=== PATIENT | female | born 1990 | race Caucasian/White ===

== ENCOUNTER 2018-07-06 14:59 | Emergency (ER) | payer MEDICAID ==
[2018-07-06 15:05] VITALS: BP 157/70
[2018-07-06] MEDS ORDERED: ALBUTEROL SULFATE HFA (90 MCG/PUFF) 8 GM MDI (1 MDI/ER DISP) IH PRN (15:31)
--- NOTE | 2018-07-06 15:34 | ER Document Report ---
ED Medical Screen (RME) - General Chief Complaint: High Blood Sugar Stated Complaint: BLOOD SUGAR ISSUES Time Seen by Provider: 07/06/18 15:19 Mode of Arrival: Ambulatory Information source: Patient Notes: This is a 28-year-old female with a history of cigarette smoking and gestational diabetes who was recently seen for exacerbation of her reactive airway disease. She was treated at the urgent care with prednisone, erythromycin and a nasal spray. She states that her sugars have been elevated ever since. Fingerstick was 511. She does state that she is been feeling jittery from the steroids as well. She denies any nausea, vomiting, fever or abdominal pain. Her wheezing has improved. TRAVEL OUTSIDE OF THE [place] IN LAST 30 DAYS: No - HPI Onset: Last week Onset/Duration: Gradual Quality of pain: No pain Severity: None Pain Level: Denies Associated Symptoms: denies: Chest pain, Shortness of breath Exacerbated by: Denies Relieved by: Denies Similar symptoms previously: Yes Recently seen / treated by doctor: Yes - Related Data Smoking: Cigarettes Frequency of alcohol use: None Drug Abuse: None Allergies/Adverse Reactions: levofloxacin [From Levaquin] Allergy (Verified 07/06/18 14:59) pineapple [Pineapple] Allergy (Verified 07/06/18 14:59) Past Medical History - General Information source: Patient - Social History Cigarette use (# per day): Yes - 1 pack/day Chew tobacco use (# tins/day): No Frequency of alcohol use: Occasional Drug Abuse: Marijuana Lives with: Family Family history: None Pulmonary Medical History: Reports: Hx Asthma Endocrine Medical History: Reports: Hx Diabetes Mellitus Type 2 Renal/ Medical History: Denies: Hx Peritoneal Dialysis Psychiatric Medical History: Denies: Hx Depression Past Surgical History: Reports: Hx Section, Hx Oral Surgery Review of Systems - Review of Systems Constitutional: denies: Chills, Fever EENT: No symptoms reported Cardiovascular: No symptoms reported Respiratory: See HPI, Cough, Wheezing Gastrointestinal: denies: Abdominal pain, Nausea, Vomiting Genitourinary: No symptoms reported Female Genitourinary: No symptoms reported Musculoskeletal: No symptoms reported Skin: No symptoms reported Hematologic/Lymphatic: No symptoms reported Neurological/Psychological: No symptoms reported Physical Exam - Vital signs Vitals: Temp Pulse Resp BP Pulse Ox 97.4 F 70 17 157/70 H 95 07/06/18 15:04 07/06/18 15:04 07/06/18 15:07/06/18 15:04 07/06/18 15:04 Notes: Physical exam: GENERAL: 28-year-old female, alert and oriented x3, no acute distress. Her vital signs are stable. She does have a hoarse voice. HEAD: Atraumatic, normocephalic. EYES: Pupils equal round and reactive to light, extraocular movements intact, sclera anicteric, conjunctiva are normal. ENT: Oropharynx clear without exudates. Moist mucous membranes. NECK: Normal range of motion, supple without obvious mass or JVD. LUNGS: Breath sounds clear to auscultation bilaterally and equal. No wheezes rales or rhonchi. HEART: Regular rate and rhythm without murmurs, rubs or gallops. EXTREMITIES: Normal range of motion, no pitting or edema. No clubbing or cyanosis. NEUROLOGICAL: Cranial nerves II through XII grossly intact. Normal speech, moving all extremities. PSYCH: Normal mood, normal affect. SKIN: Warm, Dry, normal turgor, no rashes or lesions noted. Course - Re-evaluation Re-evalutation: 07/06/18 15:48 Note: I have had a long discussion with the patient. She should be off the steroids and she is okay coming off of them. I did discuss treating her with IV fluids and insulin however she requested that we hold off given that was stopping the prednisone and she would like to recheck it tomorrow. Patient states she wants to avoid large swings in the sugar. Given that she looks great , I am okay with this plan. She appears very reasonable and she understands that she can come back at any time if she does not feel well. I have given her an inhaler because she does still have a residual cough although the wheezing is pretty much resolved. She is already on an antibiotic (erythromycin) and she is going to continue that. And she plans on following up tomorrow morning with her provider for repeat blood sugar check. - Vital Signs Vital signs: Temp Pulse Resp BP Pulse Ox 97.4 F 70 17 157/70 H 95 07/06/18 15:04 07/06/18 15:04 07/06/18 15:04 07/06/18 15:04 07/06/18 15:04 Doctor's Discharge - Discharge Clinical Impression: Steroid-induced hyperglycemia Condition: Stable Disposition: HOME, SELF-CARE Additional Instructions: As we discussed, want you to stop the prednisone. Continue the erythromycin. Take albuterol: 2 puffs every 6 hours for wheezing or cough as needed. Continue with the nasal spray. Rest, drink plenty of fluids (avoid soda, sugar). As we discussed, want your sugar rechecked tomorrow morning in clinic. If you feel like you are getting worse or you are having vomiting or abdominal pain: Return to the emergency room for evaluation. Otherwise follow-up with your doctor in the office tomorrow. Forms: Parent Work Note Referrals: DOMENICO DUBON MD [Primary Care Provider] - Follow up as needed
== END 2018-07-06 15:42 | disposition home or self-care (01) ==
LOC: ER 14:59
DX: E11.65 Type 2 diabetes mellitus with hyperglycemia (principal); T38.0X5A Adverse effect of glucocorticoids and synthetic analogues, initial encounter; J45.909 Unspecified asthma, uncomplicated; R05 Cough; R49.0 Dysphonia; F17.210 Nicotine dependence, cigarettes, uncomplicated; F12.10 Cannabis abuse, uncomplicated; Z88.1 Allergy status to other antibiotic agents; Z91.018 Allergy to other foods
CPT/HCPCS: 99284; 82962; J3490

== ENCOUNTER 2019-02-13 07:33 | Observation (INO) | payer MEDICAID ==
[2019-02-13 08:38] LABS: ABSOLUTE EOSINOPHILS # (AUTO) 0.3 10^3/uL (0.0-0.6); ABSOLUTE LYMPHOCYTES (AUTO) 2.6 10^3/uL (0.5-4.7); ABSOLUTE MONOCYTES (AUTO) 0.7 10^3/uL (0.1-1.4); ABSOLUTE NEUT (AUTO) 4.8 10^3/uL (1.7-8.2); BASOPHILS % (AUTO) 0.4 % (0-2); EOSINOPHILS % (AUTO) 3.1 % (0-6); HEMOGLOBIN 13.4 g/dL (12.0-15.5); LYMPHOCYTES % (AUTO) 31.3 % (13-45); MEAN CORPUSCULAR HGB CONC 34.3 g/dL (32.0-36.0); MEAN CORPUSCULAR VOLUME 79 fl (80-97); PLATELET COUNT 269 10^3/uL (150-450); RED BLOOD COUNT 4.97 10^6/uL (3.72-5.28); RED CELL DISTRIBUTION WIDTH 13.1 % (11.5-14.0); SEGMENTED NEUTROPHILS % (AUTO) 57.2 % (42-78); TOTAL CELLS COUNTED % (AUTO) 100 %; WHITE BLOOD COUNT 8.4 10^3/uL (4.0-10.5)
[2019-02-13] MEDS ORDERED: MAG HYDROX/AL HYDROX/SIMETH SUSP 30 ML UDCUP PO ONE (08:45)
[2019-02-13] MEDS ORDERED: METOCLOPRAMIDE HCL ORAL SOLN 10 MG/10 ML UDCUP PO ONE (08:45)
[2019-02-13] MEDS ORDERED: LIDOCAINE 2% VISCOUS SOLN 20 ML UDCUP PO ONE (08:45)
[2019-02-13 08:53] LABS: APPEARANCE,URINE SLIGHTLY-CLOUDY; BILIRUBIN,URINE NEGATIVE (NEGATIVE); CALCIUM OXALATE CRYSTALS,URINE FEW /HPF; COLOR,URINE AMBER; GLUCOSE, URINE NEGATIVE (NEGATIVE); KETONES,URINE TRACE mg/dL (NEGATIVE); LEUKOCYTE ESTERASE,URINE NEGATIVE (NEGATIVE); NITRITE,URINE NEGATIVE (NEGATIVE); PROTEIN,URINE 30 mg/dL (NEGATIVE); URINE SPECIFIC GRAVITY 1.033; UROBILINOGEN,URINE NEGATIVE mg/dL (<2.0)
[2019-02-13 09:00] LABS: ALANINE AMINOTRANSFERASE 175 U/L (9-52); ALKALINE PHOSPHATASE 73 U/L (38-126); ANION GAP 10 (5-19); ASPARTATE AMINO TRANSFERASE 75 U/L (14-36); BILIRUBIN,DIRECT 0.3 mg/dL (0.0-0.4); BILIRUBIN,TOTAL 0.3 mg/dL (0.2-1.3); BLOOD UREA NITROGEN 17 mg/dL (7-20); CALCIUM 9.2 mg/dL (8.4-10.2); CARBON DIOXIDE 24 mmol/L (22-30); CHLORIDE 107 mmol/L (98-107); GLUCOSE 213 mg/dL (75-110); LIPASE 516.2 U/L (23-300); POTASSIUM 4.5 mmol/L (3.6-5.0); SODIUM 141.3 mmol/L (137-145); TOTAL PROTEIN 7.6 g/dL (6.3-8.2)
--- NOTE | 2019-02-13 09:19 | ER Document Report ---
ED General - General Chief Complaint: Abdominal Pain Stated Complaint: ABDOMINAL PAIN Time Seen by Provider: 02/13/19 08:45 Primary Care Provider: MARCELA NICOLE MD [COMMUNITY BASED STAFF] - Follow up as needed TRAVEL OUTSIDE OF THE [place] IN LAST 30 DAYS: No - HPI Notes: Patient is a 28-year-old female that presents to the emergency department for chief complaint of epigastric abdominal pain. Patient describes the pain as sharp and nonradiating. It woke her from sleep at 3 AM and has been constant since onset. She denies relieving factors and has tried pwmy-apd-ahvwuoc medications. She denies aggravating factors. She does report associated nausea with 2 episodes of emesis. She denies any diarrhea fevers chills or sick contacts. She does have a history of diabetes and denies ever having gallstones or pancreatitis in the past. Past Medical History: Diabetes, alopecia Past Surgical History: , wisdom teeth removal Social History: Occasional heavy alcohol consumption, denies tobacco or drug use Family History: Reviewed and noncontributory for presenting illness Allergies: Reviewed, see documented allergy list. REVIEW OF SYSTEMS: CONSTITUTIONAL : No fever No chills No diaphoresis No recent illness EENT: No vision changes No congestion No sore throat CARDIOVASCULAR: No chest pain No palpitations RESPIRATORY: No shortness of breath No cough No difficulty breathing GASTROINTESTINAL: abdominal pain nausea vomiting No diarrhea GENITOURINARY: No dysuria No hematuria No difficulty urinating MUSCULOSKELETAL: No back pain No leg pain No arm pain SKIN: No rashes No lesions LYMPHATIC: No swollen, enlarged glands. NEUROLOGICAL: No lightheadedness No headache No weakness No paresthesias PSYCHIATRIC: No anxiety No depression PHYSICAL EXAMINATION: Vital signs reviewed, nursing noted reviewed. GENERAL: Appears uncomfortable, well-nourished and in no acute distress. HEAD: Atraumatic, normocephalic. EYES: Eyes appear normal, extraocular movements intact, sclera anicteric, conjunctiva are normal. ENT: nares patent, oropharynx clear without exudates. Moist mucous membranes. NECK: Normal range of motion, supple without lymphadenopathy LUNGS: Breath sounds clear to auscultation bilaterally and equal. No wheezes rales or rhonchi. HEART: Regular rate and rhythm without murmurs ABDOMEN: Soft, tenderness epigastric and right upper quadrant, negative Oneill sign, normoactive bowel sounds. No rebound, guarding, or rigidity. No masses appreciated. EXTREMITIES: Nontender, good range of motion, no pitting or edema. NEUROLOGICAL: No focal neurological deficits. Moves all extremities spontaneously Motor and sensory grossly intact on exam. PSYCH: Normal mood, normal affect. SKIN: Warm, Dry, normal turgor, no rashes or lesions noted on exposed skin - Related Data Allergies/Adverse Reactions: levofloxacin [From Levaquin] Allergy (Verified 02/13/19 07:35) pineapple [Pineapple] Allergy (Verified 02/13/19 07:35) Past Medical History - Social History Smoking Status: Former Smoker Frequency of alcohol use: Occasional Family History: Reviewed & Not Pertinent Patient has suicidal ideation: No Patient has homicidal ideation: No Pulmonary Medical History: Reports: Hx Asthma Endocrine Medical History: Reports: Hx Diabetes Mellitus Type 2 Renal/ Medical History: Denies: Hx Peritoneal Dialysis Psychiatric Medical History: Denies: Hx Depression Past Surgical History: Reports: Hx Section, Hx Oral Surgery Physical Exam - Vital signs Vitals: Temp Pulse Resp BP Pulse Ox 97.8 F 62 16 152/80 H 99 02/13/19 07:40 02/13/19 07:40 02/13/19 07:40 02/13/19 07:40 02/13/19 07:40 Course - Re-evaluation Re-evalutation: 02/13/19 09:19 Vitals reviewed. Nursing notes reviewed. Patient was ordered GI cocktail for symptom medic management and did have some improvement of her symptoms. Lab work shows elevated glucose consistent with her diabetes. She also has a slight elevation of her lipase and LFTs. Ultrasound of the right upper quadrant will be obtained to evaluate for cholelithiasis and cholecystitis. 02/13/19 10:37 Patient's ultrasound does show cholelithiasis without acute cholecystitis. Her cholelithiasis is likely the cause of her elevated LFTs and lipase. Patient is still very uncomfortable with significant abdominal tenderness. She has been ordered morphine and IV fluids. Patient's care was discussed with Dr. King who will evaluate her in the emergency room. Laboratory 02/13/19 02/13/19 02/13/19 08:25 08:25 08:25 WBC 8.4 RBC 4.97 Hgb 13.4 Hct 39.0 MCV 79 L MCH 27.0 MCHC 34.3 RDW 13.1 Plt Count 269 Seg Neutrophils % 57.2 Lymphocytes % 31.3 Monocytes % 8.0 Eosinophils % 3.1 Basophils % 0.4 Absolute Neutrophils 4.8 Absolute Lymphocytes 2.6 Absolute Monocytes 0.7 Absolute Eosinophils 0.3 Absolute Basophils 0.0 Sodium 141.3 Potassium 4.5 Chloride 107 Carbon Dioxide 24 Anion Gap 10 BUN 17 Creatinine 0.70 Est GFR ( Amer) > 60 Est GFR (Non-Af Amer) > 60 Glucose 213 H Calcium 9.2 Total Bilirubin 0.3 Direct Bilirubin 0.3 Neonat Total Bilirubin Not Reportable Neonat Direct Bilirubin Not Reportable Neonat Indirect Bili Not Reportable AST 75 H ALT 175 H Alkaline Phosphatase 73 Total Protein 7.6 Albumin 4.0 Lipase 516.2 H Urine Color MICHELLE Urine Appearance SLIGHTLY-CLOUDY Urine pH 5.0 Ur Specific [place] 1.033 Urine Protein 30 H Urine Glucose (UA) NEGATIVE Urine Ketones TRACE H Urine Blood NEGATIVE Urine Nitrite NEGATIVE Urine Bilirubin NEGATIVE Urine Urobilinogen NEGATIVE Ur Leukocyte Esterase NEGATIVE Urine WBC (Auto) 4 Urine RBC (Auto) 3 Squamous Epi Cells Auto 4 Calcium Oxalate Cr Auto FEW Urine Mucus (Auto) MANY Urine Ascorbic Acid NEGATIVE Urine HCG, Qual NEGATIVE Abdomen Ultrasound 02/13/19 09:08 IMPRESSION: 1. Cholelithiasis and gallbladder sludge with no other sonographic evidence for acute cholecystitis. 2. Fatty infiltration of the liver. 02/13/19 12:16 Patient was evaluated at bedside by Dr. King who feels she is a good candidate for management at this facility. He states he will monitor her this evening and potentially perform cholecystectomy tomorrow depending on symptomatic changes and blood work. He request patient be admitted to the medical service. I discussed her care with Dr. Belle and Rizwana Boland who accepted admission. Patient in agreement with plan of care. - Vital Signs Vital signs: Temp Pulse Resp BP Pulse Ox 97.8 F 62 16 152/80 H 99 02/13/19 07:40 02/13/19 07:40 02/13/19 07:40 02/13/19 07:40 02/13/19 07:40 - Laboratory Result Diagrams: 02/13/19 08:25 02/13/19 08:25 Laboratory results interpreted by me: 02/13/19 02/13/19 02/13/19 08:25 08:25 08:25 MCV 79 L Glucose 213 H AST 75 H ALT 175 H Lipase 516.2 H Urine Protein 30 H Urine Ketones TRACE H Discharge - Discharge Clinical Impression: Gallstone pancreatitis Cholelithiasis Qualifiers: Cholelithiasis location: gallbladder Cholecystitis presence: without cholecystitis Biliary obstruction: without biliary obstruction Qualified Code(s): K80.20 - Calculus of gallbladder without cholecystitis without obstruction Condition: Stable Disposition: ADMITTED INPATIENT Admitting Provider: Anne (Hospitalist) Unit Admitted: Medical Floor Referrals: MARCELA NICOLE MD [COMMUNITY BASED STAFF] - Follow up as needed
--- NOTE | 2019-02-13 10:03 | RADIOLOGY REPORT (SQ) ---
EXAM DESCRIPTION: U/S ABDOMEN LIMITED W/O DOP COMPLETED DATE/TIME: 02/13/2019 9:37 am REASON FOR STUDY: RUQ pain COMPARISON: None. TECHNIQUE: Grayscale images acquired of the right upper quadrant and recorded on PACS. Additional se lected color Doppler and spectral images recorded. LIMITATIONS: Acoustical interference from fat or from air in the bowel. FINDINGS: PANCREAS: Obscured by overlying bowel gas, not well evaluated on this exam. LIVER: Measures 18.2 cm. There is increased echogenicity of the liver parenchyma. LIVER VASCULATURE: Normal directional flow of the main portal vein and hepatic veins. GALLBLADDER: There is cholelithiasis. There is gallbladder sludge. Normal wall thickness. No pericho lecystic fluid. ULTRASOUND-DETECTED PÉREZ'S SIGN: Negative. INTRAHEPATIC DUCTS AND COMMON DUCT: CBD and intrahepatic ducts normal caliber. INFERIOR VENA CAVA: Not well visualized. AORTA: No aneurysm at the visualized segments, the distal abdominal aorta was obscured by overlying b owel gas. RIGHT KIDNEY: Measures 11.6 cm in length. Normal echogenicity. No hydronephrosis. No calcifications. PERITONEAL CAVITY AND RIGHT PLEURAL SPACE: No ascites or effusions. IMPRESSION: 1. Cholelithiasis and gallbladder sludge with no other sonographic evidence for acute c holecystitis. 2. Fatty infiltration of the liver. TECHNICAL DOCUMENTATION: JOB ID: [id number]- All Rights Reserved Reading location - IP/workstation name: [email or web address]
[2019-02-13] MEDS ORDERED: MORPHINE SULFATE 10 MG/ML INJ IV ONE (10:36)
[2019-02-13] MEDS ORDERED: NORMAL SALINE 1000 ML 1,000 ML IV ONE (10:36)
--- NOTE | 2019-02-13 12:21 | PDOC CONSULTATION ---
Consultation Consult Date: 02/13/19 Provider Consulted: JEFFERY WALTERS Consult reason:: Elevated LFTs and lipase with cholelithiasis History of Present Illness Admission Date/PCP: BEBO WAKEFIELD MD History of Present Illness: ALEJANDRA FLORES is a 28 year old female with insulin dependent DM suddenly c/o epigastric pains after a fatty dinner. Denies nausea but forced herself to vomit to feel better. Pains radiate to the back. Had US which showed cholelithiasis and sludge. LFts slightly elevated as well as lipase. Claimed she was told to have elevated LFTs in 2011 but she was almost 300 lbs then and this was attributed to fatty liver. Denies diarrhea,constipation, fever,chills nor dysuria. Past Medical History Pulmonary Medical History: Reports: Asthma Endocrine Medical History: Reports: Diabetes Mellitus Type 2 Skin History Note: Has alopecia Psychiatric Medical History: Denies: Depression Past Surgical History Past Surgical History: Reports: Section Social History Smoking Status: Former Smoker Frequency of Alcohol Use: None Hx Recreational Drug Use: No Family History Family History: Reviewed & Not Pertinent Parental Family History Reviewed: Yes Children Family History Reviewed: No Sibling(s) Family History Reviewed.: No Medication/Allergy Home Medications: Vitamin [-U Multiple Vitamin Capsule] 1 cap PO DAILY #0 capsule 05/04/15 Ibuprofen [Motrin 800 mg Tablet] 800 mg PO Q6 #30 tablet 05/26/15 Oxycodone HCl/Acetaminophen [Percocet 5-325 mg Tablet] 2 tab PO Q4HP PRN #30 tablet 05/26/15 Albuterol Sulfate [Ventolin Hfa] 2 puff IH Q4HP PRN #17 gm 01/11/16 Cetirizine HCl [Zyrtec 10 mg Tablet] 1 tab PO DAILY #15 tablet 01/11/16 Hydrocodone/Acetaminophen [[place] 5-325 Tablet] 1 each PO Q4 PRN #15 tablet 01/11/16 Prednisone 20 mg PO DAILY #12 tablet 01/11/16 Allergies/Adverse Reactions: levofloxacin [From Levaquin] Allergy (Verified 02/13/19 07:35) pineapple [Pineapple] Allergy (Verified 02/13/19 07:35) Review of Systems Constitutional: PRESENT: as per HPI Eyes: PRESENT: other - no visual/hearing changes Nose, Mouth, and Throat: PRESENT: other - no headache Cardiovascular: PRESENT: other - no chest pains/cough Gastrointestinal: PRESENT: abdominal pain Physical Exam Vital Signs: Temp Pulse Resp BP Pulse Ox 97.8 F 62 16 152/80 H 99 02/13/19 07:40 02/13/19 07:40 02/13/19 07:40 02/13/19 07:40 02/13/19 07:40 Intake & Output 02/12/19 02/13/19 02/14/19 06:59 06:59 06:59 Weight 92.9 kg General appearance: PRESENT: mild distress, obese Head exam: PRESENT: atraumatic Eye exam: PRESENT: conjunctiva pink Mouth exam: PRESENT: moist Neck exam: PRESENT: full ROM Respiratory exam: PRESENT: clear to auscultation hiral Cardiovascular exam: PRESENT: RRR Pulses: PRESENT: normal radial pulses Vascular exam: PRESENT: normal capillary refill GI/Abdominal exam: PRESENT: soft, tenderness - mild epigastric area. Just haed narcotic for pain. Rectal exam: PRESENT: deferred Extremities exam: PRESENT: full ROM Musculoskeletal exam: PRESENT: ambulatory Neurological exam: PRESENT: alert, oriented to person, oriented to place, oriented to time, oriented to situation Psychiatric exam: PRESENT: appropriate affect Skin exam: PRESENT: normal color, warm Results Laboratory Results: 02/13/19 08:25 02/13/19 08:25 02/13/19 02/13/19 02/13/19 08:25 08:25 08:25 WBC 8.4 RBC 4.97 Hgb 13.4 Hct 39.0 MCV 79 L MCH 27.0 MCHC 34.3 RDW 13.1 Plt Count 269 Seg Neutrophils % 57.2 Lymphocytes % 31.3 Monocytes % 8.0 Eosinophils % 3.1 Basophils % 0.4 Absolute Neutrophils 4.8 Absolute Lymphocytes 2.6 Absolute Monocytes 0.7 Absolute Eosinophils 0.3 Absolute Basophils 0.0 Sodium 141.3 Potassium 4.5 Chloride 107 Carbon Dioxide 24 Anion Gap 10 BUN 17 Creatinine 0.70 Est GFR ( Amer) > 60 Est GFR (Non-Af Amer) > 60 Glucose 213 H Calcium 9.2 Total Bilirubin 0.3 AST 75 H ALT 175 H Alkaline Phosphatase 73 Total Protein 7.6 Albumin 4.0 Lipase 516.2 H Urine Color MICHELLE Urine Appearance SLIGHTLY-CLOUDY Urine pH 5.0 Ur Specific [place] 1.033 Urine Protein 30 H Urine Glucose (UA) NEGATIVE Urine Ketones TRACE H Urine Blood NEGATIVE Urine Nitrite NEGATIVE Ur Leukocyte Esterase NEGATIVE Urine WBC (Auto) 4 Urine RBC (Auto) 3 Impressions: Abdomen Ultrasound 02/13/19 09:08 IMPRESSION: 1. Cholelithiasis and gallbladder sludge with no other sonographic evidence for acute cholecystitis. 2. Fatty infiltration of the liver. Assessment & Plan - Diagnosis (4) Cholelithiasis Qualifiers: Cholelithiasis location: gallbladder Cholecystitis presence: without cholecystitis Biliary obstruction: without biliary obstruction Qualified Code(s): K80.20 - Calculus of gallbladder without cholecystitis without obstruction Is this a current diagnosis for this admission?: Yes (5) Gallstone pancreatitis Is this a current diagnosis for this admission?: Yes - Time Time Spent: 30 to 50 Minutes - Inpatient Certification Medical Necessity: Need For IV Fluids, Need for Pain Control, Need for IV Antibiotics, Need for Surgery - Plan Summary Plan Summary: Will repeat Labs in am Possible lap divya with IOC if LFTs and lipase trending down Keep NPO after midnight
[2019-02-13] MEDS ORDERED: ALBUTEROL SULFATE 0.083% NEB 2.5 MG/3 ML AMPUL NEB PRN (13:41)
[2019-02-13] MEDS ORDERED: GLUCAGON,HUMAN RECOMB 1 MG INJ IM PRN (13:42)
[2019-02-13] MEDS ORDERED: DEXTROSE 50%-WATER 25 GM/50 ML DISP.SYRIN IV PRN ×2 (13:42)
[2019-02-13] MEDS ORDERED: OXYCODONE-ACETAMINOPHEN 5-325 MG TABLET PO PRN (13:42)
[2019-02-13] MEDS ORDERED: ACETAMINOPHEN 325 MG TABLET PO PRN (13:42)
[2019-02-13] MEDS ORDERED: DEXTROSE 40% GEL 15 GM TUBE PO PRN ×2 (13:42)
[2019-02-13] MEDS ORDERED: NORMAL SALINE 1000 ML 1,000 ML IV PRN (13:45)
[2019-02-13] MEDS: HEPARIN SOD (PORCINE) 5,000 UNIT/ML 1 ML SYRINGE SUBCUT SCH ×2 (14:36→21:30)
[2019-02-13] MEDS: MORPHINE SULFATE 10 MG/ML INJ IV PRN ×2 (17:21→20:43)
--- NOTE | 2019-02-13 18:42 | PDOC H&P ---
History of Present Illness Admission Date/PCP: 02/13/19 14:18 BEBO WAKEFIELD MD Patient complains of: abd pain History of Present Illness: ALEJANDRA FLORES is a 28 year old female with a past medical history of alopecia, diabetes mellitus, hypothyroidism, and obesity who presented to the emergency department today with a complaint of sudden onset severe epigastric pain with nausea. Evaluation in emergency department revealed low-grade temperature of 99.2 but otherwise acceptable vital signs, normal CBC, mildly elevated LFTs, and a lipase of 516. Abdominal ultrasound demonstrated cholelithiasis and gallbladder sludge without other evidence for acute cholecystitis. Fatty infiltration of the liver. Surgery was consulted; plan for possible lap divya tomorrow if lipase and LFTs are trend down. She is referred to the hospitalist service for admission and management. Past Medical History Cardiac Medical History: Reports: None Pulmonary Medical History: Reports: Asthma EENT Medical History: Reports: None Neurological Medical History: Reports: None Endocrine Medical History: Reports: Diabetes Mellitus Type 2, Hypothyroidism, Obesity, Other - Alopecia Malignancy Medical History: Reports: None GI Medical History: Reports: None Musculoskeltal Medical History: Reports: None Skin Medical History: Reports: None Psychiatric Medical History: Reports: Depression Traumatic Medical History: Reports: None Hematology: Reports: None Infectious Medical History: Reports: None Past Surgical History Past Surgical History: Reports: Section Social History Information Source: Patient Smoking Status: Current Some Day Smoker Number of Years Smokin Last Time Smoked: 02/10/19 Frequency of Alcohol Use: Occasional Hx Recreational Drug Use: Yes Drugs: Marijuana Hx Prescription Drug Abuse: No - Advance Directive Resuscitation Status: Full Code Family History Family History: Reviewed & Not Pertinent Parental Family History Reviewed: Yes Children Family History Reviewed: Yes Sibling(s) Family History Reviewed.: Yes Medication/Allergy Home Medications: Albuterol Sulfate [Proair Hfa Inhalation Aerosol 8.5 gm Mdi] 1 puff IH Q4 PRN 02/13/19 Albuterol Sulfate [Ventolin 0.083% Neb 2.5 mg/3 ml Ampul] 1 vial NEB TIDP PRN 02/13/19 Buspirone HCl [Buspar 5 mg Tablet] 1 tab PO BID 02/13/19 Ethinyl Estradiol/Drospirenone [Dania 28 Tablet] 1 each PO DAILY 02/13/19 Fluticasone Propionate [Flonase Nasal [place] 50 Mcg/[place] 16 gm] 2 sprays NASL DAILY 02/13/19 Insulin Glargine,Hum.rec.anlog [Lantus Insulin 100 Unit/1 ml 10 ml] 0 unit SUBCUT .SLIDING SCALE 02/13/19 Liraglutide [Victoza 2-Celestine] 1.8 mg SQ DAILY 02/13/19 Varenicline Tartrate [Chantix 1 Mg Tablet] 1 mg PO BID 02/13/19 Allergies/Adverse Reactions: levofloxacin [From Levaquin] Allergy (Verified 02/13/19 07:35) pineapple [Pineapple] Allergy (Verified 02/13/19 07:35) Review of Systems Constitutional: ABSENT: chills, fever(s), headache(s), weight gain, weight loss Eyes: ABSENT: visual disturbances Ears: ABSENT: hearing changes Cardiovascular: ABSENT: chest pain, dyspnea on exertion, edema, orthropnea, palpitations Respiratory: ABSENT: cough, hemoptysis Gastrointestinal: PRESENT: abdominal pain, bloating, nausea. ABSENT: constipation, diarrhea, hematemesis, hematochezia, vomiting Genitourinary: ABSENT: dysuria, hematuria Musculoskeletal: ABSENT: joint swelling Integumentary: ABSENT: rash, wounds Neurological: ABSENT: abnormal gait, abnormal speech, confusion, dizziness, focal weakness, syncope Psychiatric: ABSENT: anxiety, depression, homidical ideation, suicidal ideation Endocrine: ABSENT: cold intolerance, heat intolerance, polydipsia, polyuria Hematologic/Lymphatic: ABSENT: easy bleeding, easy bruising Physical Exam Vital Signs: Temp Pulse Resp BP Pulse Ox 99.2 F 61 15 131/93 H 98 02/13/19 16:54 02/13/19 16:54 02/13/19 16:54 02/13/19 16:54 02/13/19 16:54 Intake & Output 02/12/19 02/13/19 02/14/19 06:59 06:59 06:59 Intake Total 1500 Balance 1500 Weight 92.9 kg General appearance: PRESENT: no acute distress, cooperative - Pleasant, obese, well-developed, well-nourished Head exam: PRESENT: atraumatic, normocephalic Eye exam: PRESENT: conjunctiva pink, EOMI, PERRLA. ABSENT: scleral icterus Ear exam: PRESENT: normal external ear exam Mouth exam: PRESENT: moist, tongue midline Neck exam: ABSENT: carotid bruit, JVD, lymphadenopathy, thyromegaly Respiratory exam: PRESENT: clear to auscultation hiral, symmetrical, unlabored. ABSENT: rales, rhonchi, wheezes Cardiovascular exam: PRESENT: RRR, +S1, +S2. ABSENT: diastolic murmur, rubs, systolic murmur Pulses: PRESENT: normal dorsalis pedis pul Vascular exam: PRESENT: normal capillary refill GI/Abdominal exam: PRESENT: normal bowel sounds, soft, tenderness. ABSENT: distended, guarding, mass, organolmegaly, rebound Rectal exam: PRESENT: deferred Extremities exam: PRESENT: full ROM. ABSENT: calf tenderness, clubbing, pedal edema Neurological exam: PRESENT: alert, awake, oriented to person, oriented to place, oriented to time, oriented to situation, CN II-XII grossly intact. ABSENT: motor sensory deficit Psychiatric exam: PRESENT: appropriate affect, normal mood. ABSENT: homicidal ideation, suicidal ideation Skin exam: PRESENT: dry, intact, warm. ABSENT: cyanosis, rash Results Laboratory Results: 02/13/19 08:25 02/13/19 08:25 02/13/19 02/13/19 02/13/19 08:25 08:25 08:25 WBC 8.4 RBC 4.97 Hgb 13.4 Hct 39.0 MCV 79 L MCH 27.0 MCHC 34.3 RDW 13.1 Plt Count 269 Seg Neutrophils % 57.2 Lymphocytes % 31.3 Monocytes % 8.0 Eosinophils % 3.1 Basophils % 0.4 Absolute Neutrophils 4.8 Absolute Lymphocytes 2.6 Absolute Monocytes 0.7 Absolute Eosinophils 0.3 Absolute Basophils 0.0 Sodium 141.3 Potassium 4.5 Chloride 107 Carbon Dioxide 24 Anion Gap 10 BUN 17 Creatinine 0.70 Est GFR ( Amer) > 60 Est GFR (Non-Af Amer) > 60 Glucose 213 H Calcium 9.2 Total Bilirubin 0.3 AST 75 H ALT 175 H Alkaline Phosphatase 73 Total Protein 7.6 Albumin 4.0 Lipase 516.2 H Urine Color MICHELLE Urine Appearance SLIGHTLY-CLOUDY Urine pH 5.0 Ur Specific [place] 1.033 Urine Protein 30 H Urine Glucose (UA) NEGATIVE Urine Ketones TRACE H Urine Blood NEGATIVE Urine Nitrite NEGATIVE Ur Leukocyte Esterase NEGATIVE Urine WBC (Auto) 4 Urine RBC (Auto) 3 Impressions: Abdomen Ultrasound 02/13/19 09:08 IMPRESSION: 1. Cholelithiasis and gallbladder sludge with no other sonographic evidence for acute cholecystitis. 2. Fatty infiltration of the liver. Assessment and Plan - Diagnosis (1) Gallstone pancreatitis Is this a current diagnosis for this admission?: Yes Plan: Patient is found to have an elevated lipase of 516 and cholelithiasis by ultrasound. Slightly elevated LFTs; AST 75, ALT 175. Patient is advised the recommended n.p.o. status; requesting to be allowed to drink. Placed on clear liquid diet. N.p.o. after midnight. IV fluids. Analgesics and antiemetics as needed. Repeat CBC, CMP, and lipase with a.m. lab work. Surgery is consulted; if lab work is improved, plan for cholecystectomy. (2) Insulin dependent DM Is this a current diagnosis for this admission?: Yes Plan: Patient is currently placed on a clear liquid diet. Will provide one half home dose Lantus. Accu-Cheks before meals and at bedtime with Humalog for sliding scale coverage. Hypoglycemia protocol. (3) Hypothyroid Is this a current diagnosis for this admission?: Yes Plan: Patient reports history of hypothyroidism; states that she has been on medications for several years. Will check thyroid panel with a.m. lab work. (4) Nausea Is this a current diagnosis for this admission?: Yes Plan: Secondary to #1. Clear liquid diet, IV fluids, antiemetics as needed. (5) Obesity Qualifiers: Body mass index: BMI 37.0-37.9 Is this a current diagnosis for this admission?: Yes Plan: Lifestyle modifications and dietary discretion is advised. - Time Time Spent with patient: 35 or more minutes Medications reviewed and adjusted accordingly: Yes Anticipated discharge: Home Within: within 48 hours
[2019-02-13] MEDS: INSULIN LISPRO 100 UNIT/ML 3 ML VIAL SUBCUT SCH ×2 (18:59→21:30)
[2019-02-13] MEDS: VARENICLINE TARTRATE 1 MG TABLET PO SCH (21:32)
[2019-02-13] MEDS: BUSPIRONE HCL 10 MG TABLET PO SCH (21:32)
[2019-02-13] MEDS ORDERED: INSULIN GLARGINE,HUM.REC.ANLOG 1,000 UNIT/10 ML VIAL SUBCUT SCH ×2 (22:00)
[2019-02-14] MEDS: MORPHINE SULFATE 10 MG/ML INJ IV PRN ×3 (00:15→12:11)
[2019-02-14] MEDS: HEPARIN SOD (PORCINE) 5,000 UNIT/ML 1 ML SYRINGE SUBCUT SCH ×2 (05:15→14:31)
[2019-02-14 06:33] LABS: ABSOLUTE EOSINOPHILS # (AUTO) 0.3 10^3/uL (0.0-0.6); ABSOLUTE LYMPHOCYTES (AUTO) 2.8 10^3/uL (0.5-4.7); ABSOLUTE MONOCYTES (AUTO) 0.7 10^3/uL (0.1-1.4); ABSOLUTE NEUT (AUTO) 4.1 10^3/uL (1.7-8.2); BASOPHILS % (AUTO) 0.3 % (0-2); EOSINOPHILS % (AUTO) 3.4 % (0-6); LYMPHOCYTES % (AUTO) 35.9 % (13-45); MEAN CORPUSCULAR HEMOGLOBIN 26.5 pg (27.0-33.4); MEAN CORPUSCULAR HGB CONC 33.3 g/dL (32.0-36.0); MEAN CORPUSCULAR VOLUME 80 fl (80-97); MONOCYTES % (AUTO) 8.6 % (3-13); PLATELET COUNT 225 10^3/uL (150-450); RED BLOOD COUNT 4.52 10^6/uL (3.72-5.28); RED CELL DISTRIBUTION WIDTH 13.4 % (11.5-14.0); SEGMENTED NEUTROPHILS % (AUTO) 51.8 % (42-78); TOTAL CELLS COUNTED % (AUTO) 100 %; WHITE BLOOD COUNT 7.9 10^3/uL (4.0-10.5)
[2019-02-14 07:04] LABS: ALANINE AMINOTRANSFERASE 156 U/L (9-52); ALBUMIN 3.3 g/dL (3.5-5.0); ALKALINE PHOSPHATASE 55 U/L (38-126); ANION GAP 7 (5-19); ASPARTATE AMINO TRANSFERASE 78 U/L (14-36); BILIRUBIN,DIRECT 0.3 mg/dL (0.0-0.4); BILIRUBIN,TOTAL 0.3 mg/dL (0.2-1.3); BLOOD UREA NITROGEN 10 mg/dL (7-20); CALCIUM 8.4 mg/dL (8.4-10.2); CARBON DIOXIDE 27 mmol/L (22-30); CHLORIDE 110 mmol/L (98-107); GLUCOSE 110 mg/dL (75-110); LIPASE 254.4 U/L (23-300); POTASSIUM 4.3 mmol/L (3.6-5.0); SODIUM 143.5 mmol/L (137-145); TOTAL PROTEIN 6.6 g/dL (6.3-8.2)
[2019-02-14] MEDS ORDERED: BUPIVACAINE HCL 0.25 % INJ/PF (2.5 MG/1 ML) 30 ML VIAL ONE (08:32)
[2019-02-14] MEDS ORDERED: PROPOFOL INJ 200 MG/20 ML VIAL IV ONE (08:34)
[2019-02-14] MEDS ORDERED: MORPHINE SULFATE 10 MG/ML INJ ONE (08:34)
[2019-02-14] MEDS ORDERED: MIDAZOLAM 2 MG/2 ML INJ ONE (08:34)
[2019-02-14] MEDS ORDERED: FENTANYL CITRATE INJ/PF 100 MCG/2 ML AMPUL ONE ×2 (08:34→10:59)
[2019-02-14] MEDS ORDERED: CEFAZOLIN INJ 1 GM VIAL ONE (09:21)
[2019-02-14] MEDS ORDERED: MEPERIDINE HCL/PF INJ 25 MG/1 ML DISP.SYRIN IV PRN (09:36)
[2019-02-14] MEDS ORDERED: DIPHENHYDRAMINE HCL 50 MG/ML VIAL IV PRN (09:36)
[2019-02-14] MEDS ORDERED: FENTANYL CITRATE INJ/PF 100 MCG/2 ML AMPUL IV PRN ×3 (09:36)
[2019-02-14] MEDS ORDERED: PROMETHAZINE HCL INJ 25 MG/1 ML VIAL IV PRN ×2 (09:36)
[2019-02-14] MEDS ORDERED: MORPHINE SULFATE 10 MG/ML INJ IV PRN (09:36)
[2019-02-14] MEDS ORDERED: FLUTICASONE NASAL SPRAY 50 MCG/SPRY 120 SPRAY/16 GM NASL SCH (10:00)
[2019-02-14] MEDS ORDERED: KETOROLAC TROMETHAMINE 10 MG TABLET PO PRN (10:44)
[2019-02-14] MEDS ORDERED: KETOROLAC TROMETHAMINE INJ/PF 30 MG/1 ML SDV IV PRN (10:44)
[2019-02-14] MEDS ORDERED: ONDANSETRON HCL INJ/PF 4 MG/2 ML SDV IV PRN (10:44)
--- NOTE | 2019-02-14 11:02 | Operative Report ---
Operative Report DATE OF SURGERY: 02/14/19 PREOPERATIVE DIAGNOSIS: 1. Acute cholecystitis with cholelithiasis. 2. [place] robi liver function studies POSTOPERATIVE DIAGNOSIS: Same with no evidence of common bile duct stone OPERATION: 1. Laparoscopic cholecystectomy. 2. Intraoperative cholangiography. 3. Interpretation of intraoperative cholangiography. SURGEON: DOMENICO CHOW ANESTHESIA: GA TISSUE REMOVED OR ALTERED: 1 gallbladder with stones COMPLICATIONS: None ESTIMATED BLOOD LOSS: 40 cc INTRAOPERATIVE FINDINGS: See below PROCEDURE: After obtaining informed consent, the patient was taken to the operating room. General Anesthesia was induced; the arms were extended, and the abdomen was exposed, and prepped and draped in a sterile fashion. Instrumentation was set up for laparoscopic cholecystectomy. Surgical plan and surgical timeout were conducted. A vertical incision was made above the umbilicus, and a verres needle was inserted uneventfully into the peritoneal cavity. Pneumoperitoneum was established. The verres needle was removed and a 5 mm trocar was inserted and a 5 mm flexible laparoscope was inserted. Visualization of the peritoneal cavity confirmed safe uneventful entry. Under direct visualization 3 additional 5 mm ports were established, one in the subxiphoid position and second in the subcostal position. There were extensive adhesions between the fundus of the gallbladder, gastroduodenal area and the transverse colon. The findings were consistent with acute cholecystitis. All of these were taken down under direct visualization using hook cautery dissection, suction and blunt dissection. We now began dissecting out the neck of the gallbladder. Because of the patient's size, large length of the gallbladder, edema, and having fatty tissue, it was difficult to get the infundibulum of the gallbladder away from the liver plate. Therefore we switched graspers, and took the gallbladder down from the fundus under the the gallbladder was very edematous. We proceeded in a methodical fashion with minimal blood loss. Eventually the gallbladder was suspended by branches of the cystic artery, and the bladder neck. Branches of the cystic artery were clipped and divided under direct visualization. We cleared the remaining attachments from around the gallbladder neck, and its junction with the cystic duct. Photographs were taken. The cystic duct was clipped once distally, opened with the laparoscopic scissors and clear bile was released. Through a separate stab wound with 11 blade, the percutaneous cholangiogram catheter and let were threaded through the anterior abdominal moved, and the cholangiogram catheter brought down into the field, and advanced 1/2 cm into the cystic duct. A clip was used to secure the catheter. We flushed the biliary system with saline, then injected approximately 7 cc of full-strength Isovue contrast. Real-time fluoroscopy revealed complete visualization of the intra-and extrahepatic biliary tree, egress of contrast into the duodenum, no evidence of filling defects within the common bile duct, and no evidence of leak. We interpreted this as a normal cholangiogram. We returned to the patient, remove the cholangiogram catheter, and secured the cystic duct stump with 2 clips and then the cystic duct was divided completely. The gallbladder was removed uneventfully from the abdominal cavity through the super umbilical port site incision. The specimen was examined, then passed off to pathology for permanent analysis. We returned to the peritoneal cavity check for bleeding, and evidence of bile leak, and there was none. We Confirmed satisfactory placement of clips on cys tic duct and cystic artery were secured . At this point we felt the operation was complete. Photographs were taken. The subcutaneous tissue was then anesthetized with quarter percent Marcaine Sponge and needle counts are correct. All ports removed under direct visualization pneumoperitoneum evacuated, the super local fascial defect was closed with 2 interrupted 0 Vicryl sutures, and 5 mm port wounds closed with 3-0 Vicryl suture, benzoin and Steri- Strips. The patient was extubated, and taken to the recovery room in stable condition.
[2019-02-14] MEDS ORDERED: PROMETHAZINE HCL INJ 25 MG/1 ML VIAL ONE (11:03)
[2019-02-14] MEDS ORDERED: DEXAMETHASONE SOD PHOSPHATE INJ 4 MG/1 ML VIAL ONE (11:25)
[2019-02-14] MEDS ORDERED: ONDANSETRON HCL INJ/PF 4 MG/2 ML SDV ONE (11:25)
[2019-02-14] MEDS ORDERED: SUCCINYLCHOLINE CHLORIDE INJ 200 MG/10 ML VIAL ONE (11:25)
[2019-02-14] MEDS ORDERED: ROCURONIUM BROMIDE INJ 50 MG/5 ML VIAL IV ONE (11:25)
--- NOTE | 2019-02-14 12:58 | RADIOLOGY REPORT (SQ) ---
EXAM DESCRIPTION: CHOLANGIOGRAM OPERATIVE COMPLETED DATE/TIME: 02/14/2019 12:19 pm REASON FOR STUDY: CHOLANGIOGRAM IN OR COMPARISON: Recent ultrasound. FLUOROSCOPY TIME: 0.1 minutes 5 images saved to PACS. TECHNIQUE: Intra-operative images acquired during surgical procedure to evaluate progress. NUMBER OF IMAGES: 5 LIMITATIONS: None. FINDINGS: Images show intraoperative cholangiogram. Status post cholecystectomy. No filling defect s in the biliary tree. Expected contrast extending into the duodenum. IMPRESSION: IMAGE(S) OBTAINED DURING PROCEDURE. COMMENT: Quality ID [id number]: Final reports for procedures using fluoroscopy that document radiation exp osure indices, or exposure time and number of fluorographic images (if radiation exposure indices are not available) Please consult full operative report of the attending physician for description of the procedure. TECHNICAL DOCUMENTATION: JOB ID: [id number] [employer]- All Rights Reserved Reading location - IP/workstation name: [email or web address]
[2019-02-14] MEDS: INSULIN LISPRO 100 UNIT/ML 3 ML VIAL SUBCUT SCH ×3 (13:09→17:21)
--- NOTE | 2019-02-14 14:24 | PROGRESS NOTE E ---
Progress Note NAME: ALEJANDRA FLORES : 1990 AGE: 28Y DATE: 02/14/2019 ROOM: 207 SUBJECTIVE: The patient feels better. No complaints overnight. OBJECTIVE: VITAL SIGNS: Stable. ABDOMEN: Tenderness in the right upper quadrant with guarding. LABORATORY PROFILE: Minimal elevation in LFTs; total bilirubin within normal limits, lipase stabilizing. CLINICAL IMPRESSION: Acute cholecystitis with cholelithiasis; suspect passage of common duct stone. RECOMMENDATIONS: Will plan to take the patient to the operating room for laparoscopic, possible open cholecystectomy with intraoperative cholangiography. The risks, benefits, and alternatives of the planned procedure explained to the patient including bleeding, infection, bile duct injury, bile leak, retained common duct stone, need for additional surgery. I did explain to the patient that if she had a retained common duct stone, she may need postoperative ERCP. She expressed understanding and agreed to proceed. DICTATING PHYSICIAN: DOMENICO CHOW M.D. [id number] PHY#: [id number] ID: [id number] JOB#: [id number] ACCT: [id number] cc: >
[2019-02-14] MEDS: VARENICLINE TARTRATE 1 MG TABLET PO SCH (14:34)
[2019-02-14] MEDS: BUSPIRONE HCL 10 MG TABLET PO SCH (14:50)
[2019-02-14 19:48] VITALS: BP 132/42
--- NOTE | 2019-02-14 22:07 | PDOC PROGRESS REPORT ---
Subjective Progress Note for:: 02/14/19 Subjective:: ALEJANDRA FLORES is a 28 year old female with a past medical history of alopecia, diabetes mellitus, hypothyroidism, and obesity who presented to the emergency department today with a complaint of sudden onset severe epigastric pain with nausea. Abdominal ultrasound demonstrated cholelithiasis and gallbladder sludge without other evidence for acute cholecystitis. The patient was admitted to the hospitalist service for abdominal pain, surgicalist was consulted. The patient is seen this afternoon on rounds. She is resting comfortably in bed on room air. She is s/p laproscopic cholecystectomy. An intraoperative cholangiogram was done, guided by fluoroscopy, which was normal. The patient reports mild abdominal pain (TTP) around her umbilicus. She has not had solid foods yet. I explained to her that we would advance her diet as tolerated and likely discharge home tomorrow morning. Reason For Visit: CHOLECYSTITIS Physical Exam Vital Signs: Temp Pulse Resp BP Pulse Ox 98.0 F 51 L 16 132/42 H 97 02/14/19 19:48 02/14/19 19:48 02/14/19 19:48 02/14/19 19:48 02/14/19 19:48 Intake & Output 02/13/19 02/14/19 02/15/19 06:59 06:59 06:59 Intake Total 1500 2180 Output Total 750 Balance 1500 1430 Weight 92.5 kg General appearance: PRESENT: morbidly obese Head exam: PRESENT: atraumatic Eye exam: PRESENT: conjunctiva pink, PERRLA Mouth exam: PRESENT: moist, tongue midline Neck exam: PRESENT: full ROM Respiratory exam: PRESENT: clear to auscultation hiral, symmetrical, unlabored Pulses: PRESENT: normal radial pulses Vascular exam: PRESENT: normal capillary refill GI/Abdominal exam: PRESENT: soft, tenderness - umbilical. ABSENT: distended Rectal exam: PRESENT: deferred Extremities exam: PRESENT: full ROM. ABSENT: pedal edema Musculoskeletal exam: PRESENT: ambulatory, full ROM Neurological exam: PRESENT: alert, awake, oriented to person, oriented to place, oriented to time, oriented to situation Psychiatric exam: PRESENT: appropriate affect Skin exam: PRESENT: dry, intact, other - multiple small incisions on the anterior abdominal wall s/p lap divya Results Laboratory Results: 02/14/19 06:12 02/14/19 06:12 02/14/19 02/14/19 06:12 06:12 WBC 7.9 RBC 4.52 Hgb 12.0 Hct 36.0 MCV 80 MCH 26.5 L MCHC 33.3 RDW 13.4 Plt Count 225 Seg Neutrophils % 51.8 Lymphocytes % 35.9 Monocytes % 8.6 Eosinophils % 3.4 Basophils % 0.3 Absolute Neutrophils 4.1 Absolute Lymphocytes 2.8 Absolute Monocytes 0.7 Absolute Eosinophils 0.3 Absolute Basophils 0.0 Sodium 143.5 Potassium 4.3 Chloride 110 H Carbon Dioxide 27 Anion Gap 7 BUN 10 Creatinine 0.68 Est GFR ( Amer) > 60 Est GFR (Non-Af Amer) > 60 Glucose 110 Calcium 8.4 Total Bilirubin 0.3 AST 78 H ALT 156 H Alkaline Phosphatase 55 Total Protein 6.6 Albumin 3.3 L Lipase 254.4 Impressions: Abdomen Ultrasound 02/13/19 09:08 IMPRESSION: 1. Cholelithiasis and gallbladder sludge with no other sonographic evidence for acute cholecystitis. 2. Fatty infiltration of the liver. Cholangiogram 02/14/19 00:00 IMPRESSION: IMAGE(S) OBTAINED DURING PROCEDURE. Status: Imported from PACS Assessment and Plan - Diagnosis (1) Gallstone pancreatitis Is this a current diagnosis for this admission?: Yes Plan: Initial lipase 516-->improved to 254 today. +Cholelithiasis by ultrasound. Slightly elevated LFTs Now s/p lap divya and normal cholangiogram Advanced to regular diet, will see how she tolerates today - evaluating for post-prandial abdominal pain/N/V IV fluids. Analgesics and antiemetics as needed. Repeat CBC, CMP, and lipase with a.m. lab work. Surgery is consulted; if lab work is improved, plan for cholecystectomy. (2) Hypothyroid Is this a current diagnosis for this admission?: Yes Plan: Patient reports history of hypothyroidism; states that she has not been on medications for several years due to insurance issues Plan to check TSH with AM labs (3) Insulin dependent DM Is this a current diagnosis for this admission?: Yes Plan: Patient restarted on regular diet Will provide one half home dose Lantus. Accu-Cheks before meals and at bedtime with Humalog for sliding scale coverage. Hypoglycemia protocol. (4) Nausea Is this a current diagnosis for this admission?: Yes Plan: Secondary to #1. Clear liquid diet, IV fluids, antiemetics as needed. (5) Obesity Qualifiers: Body mass index: BMI 37.0-37.9 Is this a current diagnosis for this admission?: Yes Plan: Lifestyle modifications and dietary discretion is advised. - Time Time Spent with patient: 15-24 minutes Medications reviewed and adjusted accordingly: Yes Anticipated discharge: Home - Inpatient Certification Based on my medical assessment, after consideration of the patient's comorbidities, presenting symptoms, or acuity I expect that the services needed warrant INPATIENT care.: Yes I certify that my determination is in accordance with my understanding of Medicare's requirements for reasonable and necessary INPATIENT services [42 CFR 412.3e].: Yes Medical Necessity: Risk of Complication if Not Cared For in Hospital
--- NOTE | 2019-02-17 12:21 | DISCHARGE SUMMARY E ---
Discharge Summary NAME: ALEJANDRA FLORES : 1990 AGE: 28Y ADMITTED: 02/13/2019 DISCHARGED: 02/14/2019 REASON FOR ADMISSION: Abdominal pain. SUMMARY OF HOSPITALIZATION: The patient is a 28-year-old white female with a history of hypothyroidism, diabetes mellitus, and alopecia. Presented to the emergency department complaining of abdominal pain. She was found to have mildly elevated liver function studies. Gallbladder ultrasonography revealed gallstones. The patient was admitted to the hospitalist service with Surgery consulting. The patient was kept n.p.o. and IV fluids, the following day she was taken to the operating room by Dr. Rausch where she underwent laparoscopic cholecystectomy with intraoperative cholangiography. She was found to have gallstones, no evidence of intra or extrahepatic biliary tract abnormality. The patient tolerated the procedure well, had her diet advanced and by the evening of the hospital day was ready for discharge home. FINAL DIAGNOSIS: Symptomatic cholelithiasis with cholecystitis, status post laparoscopic cholecystectomy with intraoperative cholangiography by Dr. Rausch. DISPOSITION: The patient was discharged home in the care of family. FOLLOWUP: With Dr. Rausch or outreach representative following in the post postsurgical clinic in 1 week. DISCHARGE INSTRUCTIONS: Resume her preoperative medication, diet, and activity, and take Tylenol or Motrin p.r.n. pain. DICTATING PHYSICIAN: DOMENICO RAUSCH M.D. [id number] PHY#: [id number] ID: [id number] JOB#: [id number] ACCT: [id number] cc:Theresa NESS M.D. >
== END 2019-02-14 19:58 | disposition home or self-care (01) ==
LOC: ER 07:33 → EH 14:18 → INTOOBSV 14:18 → 2N 16:18
PROVIDERS: ADMIT Internal Medicine; ATTEND Internal Medicine
PROC: BF131ZZ Fluoroscopy of Gallbladder and Bile Ducts using Low Osmolar Contrast (ICD-10-PCS; 2019-02-14)
PROC: 0FT44ZZ Resection of Gallbladder, Percutaneous Endoscopic Approach (ICD-10-PCS; principal; 2019-02-14 09:30)
DX: K80.10 Calculus of gallbladder with chronic cholecystitis without obstruction (principal); E03.9 Hypothyroidism, unspecified; E11.9 Type 2 diabetes mellitus without complications; K76.0 Fatty (change of) liver, not elsewhere classified; L65.9 Nonscarring hair loss, unspecified; E66.9 Obesity, unspecified; J45.909 Unspecified asthma, uncomplicated; Z87.891 Personal history of nicotine dependence; Z79.4 Long term (current) use of insulin; Z79.899 Other long term (current) drug therapy; Z68.37 Body mass index [BMI] 37.0-37.9, adult
CPT/HCPCS: 99285; 96361; 96374; 36415 ×2; 82962 ×2; 83690 ×2; 85025 ×2; 81025; 80053 ×2; 81001; 88304 ×2; 74300; 76705; 47563; G0378 ×2; Q9967; J2250; J3490 ×5; J1644; J0690; J1100; J3010; J1885; J2270 ×2; J2550; J0330; J2405; S0020; J7030; J2704; 790

== ENCOUNTER 2019-02-15 08:30 | Emergency (ER) | payer MEDICAID ==
[2019-02-15] MEDS ORDERED: HYDROMORPHONE HCL INJ/PF 2 MG/ML AMPULE IV ONE (08:58)
--- NOTE | 2019-02-15 09:05 | ER Document Report ---
ED General - General Chief Complaint: Abdominal Pain Stated Complaint: ABDOMINAL PAIN Time Seen by Provider: 02/15/19 08:49 Primary Care Provider: BEBO WAKEFIELD MD [Primary Care Provider] - Follow up as needed DOMENICO RAUSCH MD [ACTIVE STAFF] - Follow up tomorrow TRAVEL OUTSIDE OF THE [place] IN LAST 30 DAYS: No - HPI Notes: Patient is a 28-year-old female that presents to the emergency department for chief complaint of abdominal pain. Patient had cholecystectomy performed yesterday and was discharged from the hospital yesterday afternoon. She states she was told to take Motrin for pain and her last dose was at 530 this morning. Patient reports increasing severe pain in her abdomen. She states that the pain is sharp and mostly located periumbilical and epigastric. She denies aggravating or relieving factors to the pain. She has not had anything to eat yet today but did tolerate a hamburger hand soup yesterday. She denies any new fevers, chills, vomiting or diarrhea. She states she has been passing gas but has not had a bowel movement yet. Past Medical History: Alopecia, diabetes Past Surgical History: Cholecystectomy Social History: Denies drugs alcohol and tobacco Family History: Reviewed and noncontributory for presenting illness Allergies: Reviewed, see documented allergy list. REVIEW OF SYSTEMS: CONSTITUTIONAL : No fever No chills No diaphoresis No recent illness EENT: No vision changes No congestion No sore throat CARDIOVASCULAR: No chest pain No palpitations RESPIRATORY: No shortness of breath No cough No difficulty breathing GASTROINTESTINAL: abdominal pain No nausea No vomiting No diarrhea GENITOURINARY: No dysuria No hematuria No difficulty urinating MUSCULOSKELETAL: No back pain No leg pain No arm pain SKIN: No rashes No lesions LYMPHATIC: No swollen, enlarged glands. NEUROLOGICAL: No lightheadedness No headache No weakness No paresthesias PSYCHIATRIC: No anxiety No depression PHYSICAL EXAMINATION: Vital signs reviewed, nursing noted reviewed. GENERAL: Appears uncomfortable, obese and in no acute distress. HEAD: Atraumatic, normocephalic. EYES: Eyes appear normal, extraocular movements intact, sclera anicteric, conjunctiva are normal. ENT: nares patent, oropharynx clear without exudates. Moist mucous membranes. NECK: Normal range of motion, supple without lymphadenopathy LUNGS: Breath sounds clear to auscultation bilaterally and equal. No wheezes rales or rhonchi. HEART: Tachycardic rate and regular rhythm without murmurs ABDOMEN: Mild distention, soft, periumbilical and upper abdominal tenderness. no rebound, guarding, or rigidity. No masses appreciated. EXTREMITIES: Nontender, good range of motion, no pitting or edema. NEUROLOGICAL: No focal neurological deficits. Moves all extremities spontaneously Motor and sensory grossly intact on exam. PSYCH: Anxious, tearful SKIN: Warm, Dry, normal turgor, 4 small surgical abdominal incisions with Steri- Strips in place that are dry with trace dried blood and no active bleeding - Related Data Allergies/Adverse Reactions: levofloxacin [From Levaquin] Allergy (Verified 02/15/19 08:30) pineapple [Pineapple] Allergy (Verified 02/15/19 08:30) Past Medical History - Social History Smoking Status: Unknown if Ever Smoked Family History: Reviewed & Not Pertinent Patient has suicidal ideation: No Patient has homicidal ideation: No Pulmonary Medical History: Reports: Hx Asthma Endocrine Medical History: Reports: Hx Diabetes Mellitus Type 2, Hx Hypothyro idism Renal/ Medical History: Denies: Hx Peritoneal Dialysis Psychiatric Medical History: Reports: Hx Depression Past Surgical History: Reports: Hx Section, Hx Oral Surgery Physical Exam - Vital signs Vitals: Temp Pulse Resp BP Pulse Ox 98.3 F 101 H 20 169/76 H 96 02/15/19 08:32 02/15/19 08:32 02/15/19 08:32 02/15/19 08:32 02/15/19 08:32 Course - Re-evaluation Re-evalutation: 02/15/19 09:03 Vitals reviewed. Nursing notes reviewed. Patient is tender consistent with postoperative pain she has no rigidity or peritoneal signs. She does have some mild distention likely related to her laparoscopic procedure. Patient was given Dilaudid for pain. I did notify Dr. Rausch that she was present in the emergency room. Lab work will be obtained. 02/15/19 10:15 Patient's lab work does show elevation in her lipase but she has normal total bilirubin. Her AST ALT are also slightly elevated but have been previously. I did discuss her care with Dr. Rausch who believes this is reactive from the cholangiogram and possibly from passing a gallstone prior to her procedure. He does not feel she is requiring inpatient admission for this. Her pain is improved and she states she feels much more comfortable. She has not had any oral intake in the ED but has also not vomited. She was instructed on eating a clear liquid diet for the next 24 hours and following up in his office in the next few days. She will call tomorrow for appointment time. She will return for new or worsening symptoms. Laboratory 02/15/19 02/15/19 09:18 09:18 WBC 9.1 RBC 4.52 Hgb 12.0 Hct 35.6 L MCV 79 L MCH 26.5 L MCHC 33.6 RDW 13.0 Plt Count 226 Seg Neutrophils % 52.6 Lymphocytes % 37.4 Monocytes % 7.9 Eosinophils % 0.7 Basophils % 1.4 Absolute Neutrophils 4.8 Absolute Lymphocytes 3.4 Absolute Monocytes 0.7 Absolute Eosinophils 0.1 Absolute Basophils 0.1 Sodium 142.2 Potassium 4.1 Chloride 111 H Carbon Dioxide 22 Anion Gap 9 BUN 12 Creatinine 0.58 Est GFR ( Amer) > 60 Est GFR (Non-Af Amer) > 60 Glucose 167 H Calcium 8.8 Total Bilirubin 0.4 Direct Bilirubin 0.4 Neonat Total Bilirubin Not Reportable Neonat Direct Bilirubin Not Reportable Neonat Indirect Bili Not Reportable AST 63 H ALT 161 H Alkaline Phosphatase 60 Total Protein 7.2 Albumin 3.7 Lipase 766.7 H 02/15/19 10:22 - Vital Signs Vital signs: Temp Pulse Resp BP Pulse Ox 98.3 F 101 H 20 169/76 H 96 02/15/19 08:32 02/15/19 08:32 02/15/19 08:32 02/15/19 08:32 02/15/19 08:32 - Laboratory Result Diagrams: 02/15/19 09:18 02/15/19 09:18 Laboratory results interpreted by me: 02/15/19 02/15/19 09:18 09:18 Hct 35.6 L MCV 79 L MCH 26.5 L Chloride 111 H Glucose 167 H AST 63 H ALT 161 H Lipase 766.7 H Discharge - Discharge Clinical Impression: Postoperative pain, Elevated lipase Condition: Stable Disposition: HOME, SELF-CARE Instructions: Abdominal Pain ([facility]) Additional Instructions: Please return to the emergency department if you have any worsening, or concern of your symptoms. Please return to the emergency department if you develop chest pain, difficulty breathing, severe abdominal pain, or ongoing vomiting. Please follow-up with your primary care physician in 2-3 days and any other recommended physicians. If prescribed, take all medications as directed. If you have any questions or concerns do not hesitate to return the emergency department for evaluation. Only consume clear liquids for the next 24 hours. After that you can advance her diet as tolerated but begin with soft foods and bland foods like bread, rice and applesauce. Call Dr. Rausch's office first thing tomorrow morning to schedule an appointment in the next few days. Prescriptions: Oxycodone HCl/Acetaminophen [Percocet 5-325 mg Tablet] 1 tab PO Q4H PRN #15 tablet PRN Reason: Pain Scale Of 5 Referrals: BEBO WAKEFIELD MD [Primary Care Provider] - Follow up as needed DOMENICO RAUSCH MD [ACTIVE STAFF] - Follow up tomorrow
[2019-02-15 09:28] LABS: ABSOLUTE BASOPHILS # (AUTO) 0.1 10^3/uL (0.0-0.2); ABSOLUTE EOSINOPHILS # (AUTO) 0.1 10^3/uL (0.0-0.6); ABSOLUTE LYMPHOCYTES (AUTO) 3.4 10^3/uL (0.5-4.7); ABSOLUTE MONOCYTES (AUTO) 0.7 10^3/uL (0.1-1.4); ABSOLUTE NEUT (AUTO) 4.8 10^3/uL (1.7-8.2); BASOPHILS % (AUTO) 1.4 % (0-2); EOSINOPHILS % (AUTO) 0.7 % (0-6); HEMATOCRIT 35.6 % (36.0-47.0); LYMPHOCYTES % (AUTO) 37.4 % (13-45); MEAN CORPUSCULAR HEMOGLOBIN 26.5 pg (27.0-33.4); MEAN CORPUSCULAR HGB CONC 33.6 g/dL (32.0-36.0); MEAN CORPUSCULAR VOLUME 79 fl (80-97); MONOCYTES % (AUTO) 7.9 % (3-13); PLATELET COUNT 226 10^3/uL (150-450); RED BLOOD COUNT 4.52 10^6/uL (3.72-5.28); SEGMENTED NEUTROPHILS % (AUTO) 52.6 % (42-78); TOTAL CELLS COUNTED % (AUTO) 100 %; WHITE BLOOD COUNT 9.1 10^3/uL (4.0-10.5)
[2019-02-15 09:46] LABS: ALANINE AMINOTRANSFERASE 161 U/L (9-52); ALBUMIN 3.7 g/dL (3.5-5.0); ALKALINE PHOSPHATASE 60 U/L (38-126); ANION GAP 9 (5-19); ASPARTATE AMINO TRANSFERASE 63 U/L (14-36); BILIRUBIN,DIRECT 0.4 mg/dL (0.0-0.4); BILIRUBIN,TOTAL 0.4 mg/dL (0.2-1.3); BLOOD UREA NITROGEN 12 mg/dL (7-20); CALCIUM 8.8 mg/dL (8.4-10.2); CARBON DIOXIDE 22 mmol/L (22-30); CHLORIDE 111 mmol/L (98-107); GLUCOSE 167 mg/dL (75-110); LIPASE 766.7 U/L (23-300); POTASSIUM 4.1 mmol/L (3.6-5.0); SODIUM 142.2 mmol/L (137-145); TOTAL PROTEIN 7.2 g/dL (6.3-8.2)
[2019-02-15 10:30] VITALS: BP 134/58
== END 2019-02-15 10:30 | disposition home or self-care (01) ==
LOC: ER 08:30
DX: G89.18 Other acute postprocedural pain (principal); R10.33 Periumbilical pain; R10.13 Epigastric pain; R74.8 Abnormal levels of other serum enzymes; R74.0 Nonspecific elevation of levels of transaminase and lactic acid dehydrogenase [LDH]; R14.0 Abdominal distension (gaseous); E11.9 Type 2 diabetes mellitus without complications; Z90.49 Acquired absence of other specified parts of digestive tract; Z88.1 Allergy status to other antibiotic agents; Z91.018 Allergy to other foods
CPT/HCPCS: 99283; 96374; 36415; 83690; 85025; 80053; J1170

== ENCOUNTER 2019-02-16 21:36 | Emergency (ER) | payer MEDICAID ==
[2019-02-17 00:56] LABS: ABSOLUTE BASOPHILS # (AUTO) 0.1 10^3/uL (0.0-0.2); ABSOLUTE EOSINOPHILS # (AUTO) 0.4 10^3/uL (0.0-0.6); ABSOLUTE LYMPHOCYTES (AUTO) 3.5 10^3/uL (0.5-4.7); ABSOLUTE MONOCYTES (AUTO) 0.6 10^3/uL (0.1-1.4); ABSOLUTE NEUT (AUTO) 4.3 10^3/uL (1.7-8.2); EOSINOPHILS % (AUTO) 4.3 % (0-6); HEMATOCRIT 37.6 % (36.0-47.0); HEMOGLOBIN 12.8 g/dL (12.0-15.5); LYMPHOCYTES % (AUTO) 39.2 % (13-45); MEAN CORPUSCULAR HEMOGLOBIN 26.8 pg (27.0-33.4); MEAN CORPUSCULAR HGB CONC 34.1 g/dL (32.0-36.0); MEAN CORPUSCULAR VOLUME 79 fl (80-97); MONOCYTES % (AUTO) 6.9 % (3-13); PLATELET COUNT 291 10^3/uL (150-450); RED BLOOD COUNT 4.79 10^6/uL (3.72-5.28); RED CELL DISTRIBUTION WIDTH 13.2 % (11.5-14.0); SEGMENTED NEUTROPHILS % (AUTO) 48.6 % (42-78); TOTAL CELLS COUNTED % (AUTO) 100 %; WHITE BLOOD COUNT 8.9 10^3/uL (4.0-10.5)
[2019-02-17 01:18] LABS: ALANINE AMINOTRANSFERASE 144 U/L (9-52); ALBUMIN 3.8 g/dL (3.5-5.0); ALKALINE PHOSPHATASE 59 U/L (38-126); ANION GAP 10 (5-19); ASPARTATE AMINO TRANSFERASE 72 U/L (14-36); BILIRUBIN,DIRECT 0.3 mg/dL (0.0-0.4); BILIRUBIN,TOTAL 0.3 mg/dL (0.2-1.3); BLOOD UREA NITROGEN 14 mg/dL (7-20); CALCIUM 9.1 mg/dL (8.4-10.2); CARBON DIOXIDE 23 mmol/L (22-30); CHLORIDE 108 mmol/L (98-107); GLUCOSE 104 mg/dL (75-110); LIPASE 189.2 U/L (23-300); POTASSIUM 3.8 mmol/L (3.6-5.0); SODIUM 140.6 mmol/L (137-145); TOTAL PROTEIN 7.3 g/dL (6.3-8.2)
--- NOTE | 2019-02-17 01:40 | ER Document Report ---
ED General - General Chief Complaint: Post Surgical Bleeding Stated Complaint: WEAKNESS,NAUSEOUS,BRUISING/SWELLING AT INCISION Time Seen by Provider: 02/17/19 00:31 Primary Care Provider: BEBO WAKEFIELD MD [Primary Care Provider] - Follow up as needed Notes: Patient is a 28-year-old female status post laparoscopic cholecystectomy 3 days ago who presents with concern of bruising around 1 of the surgical incisional site in the right lower quadrant. Patient states that she noticed the bruising earlier this morning and that it became more pronounced at the day. Nothing seems to improve or worsen the bruising. Regards it is being moderate to severe. Denies any associated pain. No fever or constitutional symptoms. States that she called the on-call surgical line and was instructed to come to the emergency department for assessment. Denies any trauma to the area. TRAVEL OUTSIDE OF THE [place] IN LAST 30 DAYS: No - Related Data Allergies/Adverse Reactions: levofloxacin [From Levaquin] Allergy (Verified 02/15/19 08:30) pineapple [Pineapple] Allergy (Verified 02/15/19 08:30) Past Medical History - General Information source: Patient - Social History Smoking Status: Never Smoker Frequency of alcohol use: None Drug Abuse: None Family History: Reviewed & Not Pertinent Pulmonary Medical History: Reports: Hx Asthma Endocrine Medical History: Reports: Hx Diabetes Mellitus Type 2, Hx Hypothyroidism Renal/ Medical History: Denies: Hx Peritoneal Dialysis Psychiatric Medical History: Reports: Hx Depression Past Surgical History: Reports: Hx Section, Hx Oral Surgery Review of Systems - Review of Systems Notes: Constitutional: Negative for fever. HENT: Negative for sore throat. Eyes: Negative for visual changes. Cardiovascular: Negative for chest pain. Respiratory: Negative for shortness of breath. Gastrointestinal: Negative for abdominal pain, vomiting or diarrhea. Genitourinary: Negative for dysuria. Musculoskeletal: Negative for back pain. Skin: Positive for ecchymosis around laparoscopic incisional site Neurological: Negative for headaches, weakness or numbness. 10 point ROS negative except as marked above and in HPI. Physical Exam - Vital signs Vitals: Temp Pulse Resp BP Pulse Ox 98.2 F 64 16 173/72 H 100 02/16/19 22:24 02/16/19 22:24 02/16/19 22:24 02/16/19 22:24 02/16/19 22:24 Interpretation: Hypertensive Notes: PHYSICAL EXAMINATION: GENERAL: Well-appearing, well-nourished and in no acute distress. HEAD: Atraumatic, normocephalic. EYES: Pupils equal round and reactive to light, extraocular movements intact, sclera anicteric, conjunctiva are normal. ENT: nares patent, oropharynx clear without exudates. Moist mucous membranes. NECK: Normal range of motion, supple without lymphadenopathy LUNGS: Breath sounds clear to auscultation bilaterally and equal. No wheezes rales or rhonchi. HEART: Regular rate and rhythm without murmurs ABDOMEN: Soft, nontender, normoactive bowel sounds. No guarding, no rebound. No masses appreciated. EXTREMITIES: Normal range of motion, no pitting or edema. No cyanosis. NEUROLOGICAL: No focal neurological deficits. Moves all extremities spontaneously and on command. PSYCH: Normal mood, normal affect. SKIN: Warm, Dry, normal turgor, mild dramatic ecchymosis over laparoscopic incisional site in the right lower quadrant Course - Re-evaluation Re-evalutation: 02/17/19 01:40 Patient presents with postoperative bruising around a laparoscopic incisional site in the right lower abdomen. The area has some mild bruising but no fluctuance, induration and is nontender. The abdominal exam is completely benign without any areas of focal tenderness, rebound or guarding. Her hemoglobin has increased from 12-12.8. Her vitals are within acceptable limits with exception of hypertension. I do not believe that the patient is having a clinically significant bleed. Case discussed with Dr. Donnelly surgeon on-call who is in agreement. Patient will follow-up in clinic. At this time will discharge with return precautions and follow-up recommendations. Verbal disch arge instructions given a the bedside and opportunity for questions given. Medication warnings reviewed. Patient is in agreement with this plan and has verbalized understanding of return precautions and the need for surgical follow- up in the next 24-72 hours. - Vital Signs Vital signs: Temp Pulse Resp BP Pulse Ox 98.2 F 64 16 173/72 H 100 02/16/19 22:24 02/16/19 22:24 02/16/19 22:24 02/16/19 22:24 02/16/19 22:24 - Laboratory Result Diagrams: 02/17/19 00:45 02/17/19 00:45 Laboratory results interpreted by me: 02/17/19 02/17/19 00:45 00:45 MCV 79 L MCH 26.8 L Chloride 108 H AST 72 H ALT 144 H Discharge - Discharge Clinical Impression: Postoperative ecchymosis Condition: Good Disposition: HOME, SELF-CARE Additional Instructions: Your blood counts are normal and higher than yesterday. It does not appear that you are having a clinically significant bleed and this is likely normal bruising in the postoperative period. I did discuss with Dr. Donnelly the surgeon on-call who is advised that you are welcome to follow-up in the surgery clinic tomorrow. Please return if you have worsening of the bruising, increasing pain, fever greater than 100.4 F, pass out, or have any other symptoms that are worrisome to you. Referrals: BEBO WAKEFIELD MD [Primary Care Provider] - Follow up as needed
[2019-02-17 02:07] VITALS: BP 125/73
== END 2019-02-17 02:25 | disposition home or self-care (01) ==
LOC: ER 21:36
DX: R58 Hemorrhage, not elsewhere classified (principal); Z48.815 Encounter for surgical aftercare following surgery on the digestive system; J45.909 Unspecified asthma, uncomplicated; E11.9 Type 2 diabetes mellitus without complications; I10 Essential (primary) hypertension; Z88.1 Allergy status to other antibiotic agents; Z91.018 Allergy to other foods
CPT/HCPCS: 36415; 80053; 83690; 85025; 99283

== ENCOUNTER 2020-03-04 16:09 | Emergency (ER) | payer MEDICAID ==
[2020-03-04 16:13] VITALS: BP 128/75
--- NOTE | 2020-03-04 16:37 | ER Document Report ---
ED ENT - General Chief Complaint: Ear Pain Stated Complaint: EAR PAIN Time Seen by Provider: 03/04/20 16:24 Primary Care Provider: BEBO WAKEFIELD MD [Primary Care Provider] - Follow up in 3-5 days CHRISTIAN MELENDEZ MD [ACTIVE STAFF] - Follow up as needed Mode of Arrival: Ambulatory Information source: Patient Notes: 29-year-old female presented to ED for complaint of left ear pain since Saturday. She states she has had an increase in pain and pressure to the ear in the last couple days. She states she has had to start a liquid diet due to inability to open her mouth due to the ear pain. She states she has been treated for ear infections several times recently due to ear infections. She states she does have a history of hep C and alopecia. Patient was alert oriented respirations regular and unlabored speaking in full sentences. TRAVEL OUTSIDE OF THE [place] IN LAST 30 DAYS: No - HPI Patient complains to provider of: Ear problem - Left ear pain Onset: Last week Onset/Duration: Gradual, Worse Quality of pain: Sharp - Throbbing Severity: Severe Pain Level: 5 Location of pain: Ears Associated symptoms: Ear pain Similar symptoms previously: Yes Recently seen / treated by doctor: Yes - Related Data Allergies/Adverse Reactions: levofloxacin [From Levaquin] Allergy (Verified 02/15/19 08:30) pineapple [Pineapple] Allergy (Verified 02/15/19 08:30) Past Medical History - General Information source: Patient - Social History Smoking Status: Current Every Day Smoker Cigarette use (# per day): Yes - Pack per day Smoking Education Provided: Yes - 4 minutes Frequency of alcohol use: Occasional Drug Abuse: Marijuana Family History: Reviewed & Not Pertinent Patient has homicidal ideation: No - Past Medical History Cardiac Medical History: Reports: None Pulmonary Medical History: Reports: Hx Asthma EENT Medical History: Reports: None Neurological Medical History: Reports: None Endocrine Medical History: Reports: Hx Diabetes Mellitus Type 2, Hx Hypothyroidism Renal/ Medical History: Reports: None Malignancy Medical History: Reports: None GI Medical History: Reports: Hx Hepatitis - See Musculoskeletal Medical History: Reports None Skin Medical History: Reports Other - Alopecia Psychiatric Medical History: Reports: Hx Depression Traumatic Medical History: Reports: None Infectious Medical History: Reports: None Past Surgical History: Reports: Hx Section, Hx Oral Surgery Review of Systems - Review of Systems Constitutional: No symptoms reported EENT: Ear pain Cardiovascular: No symptoms reported Respiratory: No symptoms reported Gastrointestinal: No symptoms reported Genitourinary: No symptoms reported Female Genitourinary: No symptoms reported Musculoskeletal: No symptoms reported Skin: No symptoms reported Hematologic/Lymphatic: No symptoms reported Neurological/Psychological: No symptoms reported -: Yes All other systems reviewed and negative Physical Exam - Vital signs Vitals: Temp Pulse Resp BP Pulse Ox 98.0 F 77 19 128/75 H 98 03/04/20 16:12 03/04/20 16:12 03/04/20 16:12 03/04/20 16:12 03/04/20 16:12 Interpretation: Normal - General General appearance: Appears well, Alert - HEENT Head: Normocephalic, Atraumatic Eyes: Normal Pupils: PERRL Ears: Normal External canal: Other - Mild redness to the tympanic membranes and side of the ear canal due to scratching with Q-tips. Patient states she uses tube tips in her ear. Tympanic membrane: No: Bulging, Hemotympanum, Injected, Loss of landmarks, Perforation, Purulent effusion, Retracted, Serous effusion Sinus: Normal, Abnormal Nasal: Normal Mouth/Lips: Normal Mucous membranes: Normal Pharynx: Normal Neck: Normal - Respiratory Respiratory status: No respiratory distress Chest status: Nontender Breath sounds: Normal Chest palpation: Normal - Cardiovascular Rhythm: Regular Heart sounds: Normal auscultation Murmur: No - Abdominal Inspection: Normal Distension: No distension Bowel sounds: Normal Tenderness: Nontender Organomegaly: No organomegaly - Back Back: Normal, Nontender - Extremities General upper extremity: Normal inspection, Nontender, Normal color, Normal ROM, Normal temperature General lower extremity: Normal inspection, Nontender, Normal color, Normal ROM, Normal temperature, Normal weight bearing. No: Yonny's sign - Neurological Neuro grossly intact: Yes Cognition: Normal Orientation: AAOx4 Jamilah Coma Scale Eye Opening: Spontaneous [place]asper Coma Scale Verbal: Oriented [place] Coma Scale Motor: Obeys Commands Jamilah Coma Scale Total: 15 Speech: Normal Motor strength normal: LUE, RUE, LLE, RLE Sensory: Normal - Psychological Associated symptoms: Normal affect, Normal mood - Skin Skin Temperature: Warm Skin Moisture: Dry Skin Color: Normal Course - Re-evaluation Re-evalutation: 03/04/20 18:55 Patient was given prescription for neomycin polymyxin with dexamethasone for her ear infection as she is allergic to Levaquin. She was instructed on use of Tylenol and Motrin. There is more irritation than infection but patient insists that the pain is such that she cannot open her jaw. Patient did return to the ED very upset because she could not give the eardrops to herself she did not understand how to give the eardrops. Please see RNs note concerning her discussion with the patient. - Vital Signs Vital signs: Temp Pulse Resp BP Pulse Ox 98.0 F 77 19 128/75 H 98 03/04/20 16:21 03/04/20 16:12 03/04/20 16:12 03/04/20 16:12 03/04/20 16:12 Discharge - Discharge Clinical Impression: Otitis externa Qualifiers: Otitis externa type: unspecified type Chronicity: acute Laterality: left Qualified Code(s): H60.502 - Unspecified acute noninfective otitis externa, left ear Condition: Stable Disposition: HOME, SELF-CARE Additional Instructions: OTITIS EXTERNA: You have otitis externa -- an infection of the outer ear canal. This can be very painful. It's sometimes called "swimmer's ear," because it often occurs after prolonged water exposure. Many things, such as earwax and dirt in the ear, can contribute to it. The usual treatment is antibiotic/antiinflammatory ear drops. Occasionally, a wick will be placed in the ear to draw in the medicine. If the infection is severe, an oral antibiotic may be prescribed. Pain medication is often needed. Avoid getting water in the ear. Outer ear infections often take longer to heal than you might expect. Some tenderness and ache in the ear may persist for about two weeks. See your physician if you fail to improve as expected. Call the doctor at once if you develop fever, increasing swelling (particularly if it makes your ear "poke out"), severe headache, stiff neck, or decreased hearing. USE OF EAR DROPS: Your ear drops won't do much good if they don't get all the way in. To help the ear drops penetrate all the way to the ear drum, use the following technique. If you encounter problems of any kind, notify the physician. (1) Lay your head sideways on a pillow. (2) Place the dropper tip just barely inside the ear canal, almost touching the bottom side of the canal. The liquid is tolerated better on the bottom of the canal. (3) Squeeze out the appropriate amount of medicine, and remove the dropper. (4) Grab the back of the ear (just behind the ear canal) between your index finger and thumb. (5) Tug up, then let the ear drop back. Repeat several times. This pumps the medicine down. (6) Wait five minutes, then place a cotton ball in the ear canal to catch and hold the medicine. USE OF ACETAMINOPHEN (Tylenol): Acetaminophen may be taken for pain relief or fever control. It's much safer than aspirin, offering a wider range of "safe" dosages. It is safe during . Some brand names are Tylenol, Panadol, Datril, Anacin 3, Tempra, and Liquiprin. Acetaminophen can be repeated every four hours. The following are maximum recommended dosages: WEIGHT Dose Drops Elixir Chewable(80mg) (LBS.) drprs=droppers tsp=teaspoon 6 40 mg 0.4 ml (1/2) 6-11 80 mg 0.8 ml (full) tsp 1 tab 12-16 120 mg 1 1/2 drprs 3/4 tsp 1 1/2 tabs 17-23 160 mg 2 drprs 1 tsp 2 tabs 24-30 240 mg 3 drprs 1 1/2 tsp 3 tabs 30-35 320 mg 2 tsp 4 tabs 36-41 360 mg 2 1/4 tsp 4 1/2 tabs 42-47 400 mg 2 1/2 tsp 5 tabs 48-53 480 mg 3 tsp 6 tabs 54-59 520 mg 3 1/4 tsp 6 1/2 tabs 60-64 560 mg 3 1/2 tsp 7 tabs 65-70 600 mg 3 3/4 tsp 7 1/2 tabs 71-76 640 mg 4 tsp 8 tabs 77-82 720 mg 4 1/2 tsp 9 tabs 83-88 800 mg 5 tsp 10 tabs >89 pounds or adults 650 mg to 900 mg Acetaminophen can be repeated every four hours. Maximum dose not to exceed 4000 mg a day. These maximum recommended dosages are slightly higher than the dosages written on the product container, but these dosages are very safe and below the toxic dosage for acetaminophen. FOLLOW-UP CARE: If you have been referred to a physician for follow-up care, call the physicians office for an appointment as you were instructed or within the next two days. If you experience worsening or a significant change in your symptoms, notify the physician immediately or return to the Emergency Department at any time for re-evaluation. Prescriptions: Neomy Sulf/Polymyx B Sulf/Hc [Cortisporin Otic Susp 10 ml] 4 drop LFT_EAR Q6 #1 bottle Forms: Elevated Blood Pressure, Smoking Cessation Education Referrals: BEBO WAKEFIELD MD [Primary Care Provider] - Follow up in 3-5 days CHRISTIAN MELENDEZ MD [ACTIVE STAFF] - Follow up as needed
== END 2020-03-04 16:44 | disposition home or self-care (01) ==
LOC: ER 16:09
DX: H60.502 Unspecified acute noninfective otitis externa, left ear (principal); H92.02 Otalgia, left ear; J45.909 Unspecified asthma, uncomplicated; E11.9 Type 2 diabetes mellitus without complications; F12.10 Cannabis abuse, uncomplicated; F17.210 Nicotine dependence, cigarettes, uncomplicated; Z71.6 Tobacco abuse counseling; Z91.018 Allergy to other foods; Z88.1 Allergy status to other antibiotic agents
CPT/HCPCS: 99282; 99406

== ENCOUNTER 2020-03-05 01:13 | Emergency (ER) | payer MEDICAID ==
[2020-03-05] MEDS ORDERED: AMOXICILLIN TR/POT CLAVULANATE 875-125 MG TAB PO ONE (02:29)
[2020-03-05] MEDS ORDERED: HYDROCODONE/ACETAMINOPHEN 5-325 MG (6 TAB/ER DISP) PO PRN (02:29)
--- NOTE | 2020-03-05 02:34 | ER Document Report ---
ED ENT - General Chief Complaint: Ear Pain Stated Complaint: EAR PAIN Time Seen by Provider: 03/05/20 02:18 Primary Care Provider: BEBO WAKEFIELD MD [Primary Care Provider] - Follow up as needed Notes: CHIEF COMPLAINT: Left ear pain for 5 days HPI: 29-year-old female presenting to the emergency department complaining of left ear pain over the last 5 days. No fever. No discharge. Patient states she has had otitis externa previously and normally takes Augmentin to fix this. States she did call her PCP who indicated she was here in the office tomorrow but patient states the pain is unmanageable tonight. States she was seen in the emergency department earlier today and prescribed eardrops which are not helping with the pain. Does admit to attempting marijuana and CBD oil without resolution of the discomfort. ROS: See HPI - all other systems were reviewed and are otherwise negative Constitutional: no fever Eyes: no drainage, no blurred vision ENT: no runny nose, no sore throat, positive left ear pain Cardiovascular: no chest pain Resp: no SOB, no cough GI: no vomiting, no diarrhea, no abdominal pain : no dysuria Integumentary: no rash Allergy: no hives Musculoskeletal: no extremity pain or swelling Neurological: no numbness/tingling, no weakness MEDICATIONS: I agree with the patient medications as charted by the RN. ALLERGIES: I agree with the allergies as charted by the RN. PAST MEDICAL HISTORY/PAST SURGICAL HISTORY: Reviewed and agree as charted by RN. SOCIAL HISTORY: Reviewed and agree as charted by RN. FAMILY HISTORY: No significant familial comorbid conditions directly related to patient complaint EXAM: Reviewed vital signs as charted by RN. CONSTITUTIONAL: Alert and oriented and responds appropriately to questions. Well-appearing; well-nourished HEAD: Normocephalic; atraumatic EYES: PERRL; Conjunctivae clear, sclerae non-icteric ENT: normal nose; no rhinorrhea; moist mucous membranes; pharynx without lesions noted, no uvula edema or deviation, no tonsillar hypertrophy, phonation normal. Tympanic membrane is pearly ludwig. Some fluid serous type behind the eardrum. There is very slight irritation of the auditory canal NECK: Supple without meningismus; non-tender; no cervical lymphadenopathy, no masses CARD: symmetric distal pulses RESP: Normal chest excursion without splinting or tachypnea ABD/GI: non-distended. BACK: The back appears normal EXT: Normal ROM in all joints; no cyanosis, no effusions, no edema SKIN: Normal color for age and race; warm; dry; good turgor NEURO: Moves all extremities equally; Motor and sensory function intact PSYCH: The patient's mood and manner are appropriate. Grooming and personal hygiene are appropriate. MDM: 29-year-old female with a mild left otitis externa. She states she normally has to go on Augmentin, I will prescribe her Augmentin since she feels this works for her. She is to see her PCP today. I will not prescribe the patient narcotics although I did review her on the [place] narcotics database, she does receive Xanax from her PCP but does not have a significant history of multiple prescriptions filled by multiple providers. I will provide her with a take-home pack of Colon and she may obtain further pain management from her PCP TRAVEL OUTSIDE OF THE [place] IN LAST 30 DAYS: No - Related Data Allergies/Adverse Reactions: levofloxacin [From Levaquin] Allergy (Verified 02/15/19 08:30) pineapple [Pineapple] Allergy (Verified 02/15/19 08:30) Home Medications: metformin, lexapro, amydrite, xanax, lantus Past Medical History - Social History Smoking Status: Current Every Day Smoker Family History: Reviewed & Not Pertinent Patient has homicidal ideation: No Pulmonary Medical History: Reports: Hx Asthma Endocrine Medical History: Reports: Hx Diabetes Mellitus Type 2, Hx Hypothyroidism Renal/ Medical History: Denies: Hx Peritoneal Dialysis GI Medical History: Reports: Hx Hepatitis - See Psychiatric Medical History: Reports: Hx Depression Infectious Medical History: Reports: Hx Hepatitis - See Past Surgical History: Reports: Hx Section, Hx Oral Surgery Physical Exam - Vital signs Vitals: Temp Pulse Resp BP Pulse Ox 98.7 F 86 16 125/64 100 03/05/20 01:34 03/05/20 01:34 03/05/20 01:34 03/05/20 01:34 03/05/20 01:34 Course - Vital Signs Vital signs: Temp Pulse Resp BP Pulse Ox 98.7 F 86 16 125/64 100 03/05/20 01:55 03/05/20 01:34 03/05/20 01:34 03/05/20 01:34 03/05/20 01:34 Discharge - Discharge Clinical Impression: Otalgia of left ear Otitis externa of left ear Qualifiers: Otitis externa type: unspecified type Chronicity: acute Qualified Code(s): H60.502 - Unspecified acute noninfective otitis externa, left ear Condition: Stable Disposition: HOME, SELF-CARE Additional Instructions: Take the pain medication every 4-6 hours as prescribed. Take the Augmentin as prescribed. Continue using the eardrops. Follow-up with your PCP today for further management including pain management Prescriptions: Amoxicillin/Potassium Clav [Augmentin 875-125 Tablet] 1 tab PO Q12 #14 tablet Referrals: BEBO WAKEFIELD MD [Primary Care Provider] - Follow up as needed
[2020-03-05 02:59] VITALS: BP 122/64
== END 2020-03-05 03:01 | disposition home or self-care (01) ==
LOC: ER 01:13
DX: H60.502 Unspecified acute noninfective otitis externa, left ear (principal); E11.9 Type 2 diabetes mellitus without complications; F32.9 Major depressive disorder, single episode, unspecified; J45.909 Unspecified asthma, uncomplicated; F17.200 Nicotine dependence, unspecified, uncomplicated; Z79.899 Other long term (current) drug therapy; Z79.4 Long term (current) use of insulin; Z88.1 Allergy status to other antibiotic agents; Z91.018 Allergy to other foods
CPT/HCPCS: 99282; J3490

== ENCOUNTER 2020-04-29 10:11 | Emergency (ER) | payer MEDICAID ==
[2020-04-29] MEDS ORDERED: NORMAL SALINE 1000 ML 1,000 ML IV ONE (10:26)
--- NOTE | 2020-04-29 10:29 | ER Document Report ---
ED Medical Screen (RME) - General Chief Complaint: Abscess Stated Complaint: ABSCESS/FACIAL Time Seen by Provider: 04/29/20 10:19 Primary Care Provider: BEBO WAKEFIELD MD [Primary Care Provider] - Follow up as needed Notes: 29-year-old female presented to ED for abscess to the left lower face that is now cellulitis to the whole left side of her face. She was getting Rocephin by injection by her primary care yesterday when she saw him today to get the next injection he sent her to the emergency room stating she needed a lot more work- up before just getting her more Rocephin. She is a diabetic. She states she dominguez s not been taking her diabetes medicine properly. She is alert oriented respirations regular nonlabored speaking in full sentences. I have greeted and performed a rapid initial assessment of this patient. A comprehensive ED assessment and evaluation of the patient, analysis of test results and completion of medical decision making process will be conducted by an additional ED providers. TRAVEL OUTSIDE OF THE [place] IN LAST 30 DAYS: No - Related Data Allergies/Adverse Reactions: levofloxacin [From Levaquin] Allergy (Verified 04/29/20 10:15) pineapple [Pineapple] Allergy (Verified 04/29/20 10:15) Past Medical History - Social History Family history: None Pulmonary Medical History: Reports: Hx Asthma Endocrine Medical History: Reports: Hx Diabetes Mellitus Type 2, Hx Hypothyroidism Renal/ Medical History: Denies: Hx Peritoneal Dialysis GI Medical History: Reports: Hx Hepatitis - See Psychiatric Medical History: Reports: Hx Depression Infectious Medical History: Reports: Hx Hepatitis - See Past Surgical History: Reports: Hx Section, Hx Oral Surgery Physical Exam - Vital signs Vitals: Temp Pulse Resp BP Pulse Ox 98.0 F 89 18 150/88 H 97 04/29/20 10:14 04/29/20 10:14 04/29/20 10:14 04/29/20 10:14 04/29/20 10:14 Course - Vital Signs Vital signs: Temp Pulse Resp BP Pulse Ox 98.0 F 89 18 150/88 H 97 04/29/20 10:14 04/29/20 10:14 04/29/20 10:14 04/29/20 10:14 04/29/20 10:14 Doctor's Discharge - Discharge Referrals: BEBO WAKEFIELD MD [Primary Care Provider] - Follow up as needed
[2020-04-29] MEDS ORDERED: CEFEPIME 2 GM/D5W RTU 2 GM/50 ML RTUPB IV ONE (11:04)
[2020-04-29] MEDS ORDERED: VANCOMYCIN HCL INJ 1000 MG VIAL IV ONE (11:05)
[2020-04-29 11:42] LABS: ABSOLUTE BASOPHILS # (AUTO) 0.1 10^3/uL (0.0-0.2); ABSOLUTE EOSINOPHILS # (AUTO) 0.4 10^3/uL (0.0-0.6); ABSOLUTE LYMPHOCYTES (AUTO) 3.4 10^3/uL (0.5-4.7); ABSOLUTE MONOCYTES (AUTO) 0.8 10^3/uL (0.1-1.4); ABSOLUTE NEUT (AUTO) 6.8 10^3/uL (1.7-8.2); BASOPHILS % (AUTO) 0.6 % (0-2); EOSINOPHILS % (AUTO) 3.8 % (0-6); HEMOGLOBIN 12.4 g/dL (12.0-15.5); LYMPHOCYTES % (AUTO) 29.8 % (13-45); MEAN CORPUSCULAR HEMOGLOBIN 27.2 pg (27.0-33.4); MEAN CORPUSCULAR HGB CONC 33.5 g/dL (32.0-36.0); MEAN CORPUSCULAR VOLUME 81 fl (80-97); MONOCYTES % (AUTO) 6.6 % (3-13); PLATELET COUNT 203 10^3/uL (150-450); RED BLOOD COUNT 4.56 10^6/uL (3.72-5.28); RED CELL DISTRIBUTION WIDTH 13.2 % (11.5-14.0); SEGMENTED NEUTROPHILS % (AUTO) 59.2 % (42-78); TOTAL CELLS COUNTED % (AUTO) 100 %; VENOUS BLOOD BASE EXCESS -2.4 mmol/L; VENOUS BLOOD HCO3 23.5 mmol/L (20-32); VENOUS BLOOD PCO2 44.7 mmHg (35-63); VENOUS BLOOD PH 7.34 (7.30-7.42); WHITE BLOOD COUNT 11.5 10^3/uL (4.0-10.5)
[2020-04-29 12:01] LABS: ALKALINE PHOSPHATASE 59 U/L (38-126); ANION GAP 5 (5-19); ASPARTATE AMINO TRANSFERASE 18 U/L (14-36); BILIRUBIN,TOTAL 0.4 mg/dL (0.2-1.3); BLOOD UREA NITROGEN 13 mg/dL (7-20); C-REACTIVE PROTEIN 41.4 mg/L (<10.0); CALCIUM 8.6 mg/dL (8.4-10.2); CARBON DIOXIDE 23 mmol/L (22-30); CHLORIDE 107 mmol/L (98-107); GLUCOSE 217 mg/dL (75-110); POTASSIUM 4.6 mmol/L (3.6-5.0); TOTAL PROTEIN 7.7 g/dL (6.3-8.2)
[2020-04-29 12:19] LABS: ERYTHROCYTE SEDIMENTATION RATE 38 mm/hr (0-20)
--- NOTE | 2020-04-29 13:24 | RADIOLOGY REPORT (SQ) ---
EXAM DESCRIPTION: CT FACIAL AREA WITH IMAGES COMPLETED DATE/TIME: 04/29/2020 12:47 pm REASON FOR STUDY: Cellulitis in the face and neck COMPARISON: None. TECHNIQUE: Post contrast images through the facial bones and orbits windowed for bone and soft tissu e. Additional coronal and sagittal reconstructed images reviewed. All images stored on PACS. All CT scanners at this facility use dose modulation, iterative reconstruction, and/or weight based d osing when appropriate to reduce radiation dose to as low as reasonably achievable (ALARA). [facility]: Dose Right [facility]: CareDose [facility]: Dose Right [facility]: Teradose 4D [facility]: Mastodon C CONTRAST TYPE AND DOSE: contrast/concentration: Isovue mmol/ml; Total Contrast Delivered: 50.0 ml; Total Saline Delivered: 50.0 ml RENAL FUNCTION: BUN 13 creatinine 0.42. RADIATION DOSE: CT Rad equipment meets quality standard of care and radiation dose reduction techniq ues were employed. CTDIvol: 30.4 mGy. DLP: 701 mGy-cm. . LIMITATIONS: None. FINDINGS: FACIAL BONES: No fracture or bone lesion. ORBITS: Intact. No fracture. Symmetric intact globes and retroorbital soft tissues. PARANASAL SINUSES: Clear. No significant mucosal thickening, mass or fluid. No nasal polyps. Maxilla ry sinus outlets are patent. SOFT TISSUES: No mass or edema. No abnormal enhancement. INFERIOR BRAIN: Limited view. No acute findings. OTHER: No other significant finding. IMPRESSION: NO SIGNIFICANT FINDINGS. TECHNICAL DOCUMENTATION: JOB ID: [id number] Quality ID # [id number]: Final reports with documentation of one or more dose reduction techniques (e.g., Au tomated exposure control, adjustment of the mA and/or kV according to patient size, use of iterative reconstruction technique) 2010 [employer]- All Rights Reserved Reading location - IP/workstation name: [email or web address]
[2020-04-29] MEDS ORDERED: KETOROLAC TROMETHAMINE INJ/PF 30 MG/1 ML SDV IV ONE (13:50)
[2020-04-29] MEDS ORDERED: ONDANSETRON HCL INJ/PF 4 MG/2 ML SDV IV ONE (13:51)
[2020-04-29] MEDS ORDERED: MORPHINE SULFATE 10 MG/ML INJ IV ONE (13:51)
[2020-04-29] MEDS ORDERED: FAMOTIDINE INJ/PF 20 MG/2 ML SDV IV ONE (13:57)
--- NOTE | 2020-04-29 14:02 | ER Document Report ---
Entered by KLEVER DINH SCRIBE 04/29/20 1058 Acting as scribe for:MURPHY BANG MD ED General - General Chief Complaint: Abscess Stated Complaint: ABSCESS/FACIAL Time Seen by Provider: 04/29/20 10:19 Primary Care Provider: BEBO WAKEFIELD MD [Primary Care Provider] - Follow up as needed Information source: Patient Notes: This 29 year old female patient presents to the emergency department today with complaints of left jaw swelling and pain. Patient states she has been treating an ear infection that has turned into a yeast infection. Patient states she has a pimple on her left chin she popped and now her left jaw is swelling. Patient states she has been taking the wrong amount of insulin by accident and started taking the right amount last night. Patient states she has been on percocet for x1 week and was prescribed ear drops for the yeast infection but cannot pick them up due to insurance issues. Patient reports she was sent to the ED today by her PCP who has been treating her ear infection. Denies any fever, chills, or problems swallowing. TRAVEL OUTSIDE OF THE [place] IN LAST 30 DAYS: No - Related Data Allergies/Adverse Reactions: levofloxacin [From Levaquin] Allergy (Verified 04/29/20 10:15) pineapple [Pineapple] Allergy (Verified 04/29/20 10:15) Past Medical History - General Information source: Patient - Social History Smoking Status: Current Every Day Smoker Cigarette use (# per day): Yes Chew tobacco use (# tins/day): No Frequency of alcohol use: Occasional Drug Abuse: Marijuana Family History: Reviewed & Not Pertinent Patient has homicidal ideation: No Pulmonary Medical History: Reports: Hx Asthma Endocrine Medical History: Reports: Hx Diabetes Mellitus Type 2, Hx Hypothyroidism GI Medical History: Reports: Hx Hepatitis Psychiatric Medical History: Reports: Hx Depression Infectious Medical History: Reports: Hx Hepatitis - See Past Surgical History: Reports: Hx Section, Hx Cholecystectomy, Hx Oral Surgery Review of Systems - Review of Systems Constitutional: See HPI. denies: Chills, Fever EENT: See HPI, Other - L jaw swelling and pain. denies: Difficulty swallowing Cardiovascular: No symptoms reported Respiratory: No symptoms reported Gastrointestinal: No symptoms reported Genitourinary: No symptoms reported Female Genitourinary: No symptoms reported Musculoskeletal: See HPI Skin: See HPI Hematologic/Lymphatic: No symptoms reported Neurological/Psychological: No symptoms reported -: Yes All other systems reviewed and negative Physical Exam - Vital signs Vitals: Temp Pulse Resp BP Pulse Ox 98.0 F 89 18 150/88 H 97 04/29/20 10:14 04/29/20 10:14 04/29/20 10:14 04/29/20 10:14 04/29/20 10:14 - General General appearance: Appears well, Alert - HEENT Head: Normocephalic, Atraumatic Eyes: Normal Pupils: PERRL Mouth/Lips: No: Dental fracture Pharynx: Normal. No: Exudate, Post nasal drainage Notes: Pimple on the left chin and auricle of the right ear. Soft tissue swelling of the left jaw. No lymphadenopathy appreciated of the left neck. Airway is not potentially compromised. - Respiratory Respiratory status: No respiratory distress Chest status: Nontender Breath sounds: Normal Chest palpation: Normal - Cardiovascular Rhythm: Regular Heart sounds: Normal auscultation Murmur: No - Abdominal Inspection: Normal Distension: No distension Bowel sounds: Normal Tenderness: Nontender - Extremities General upper extremity: Normal inspection. No: Edema General lower extremity: Normal inspection. No: Edema - Neurological Neuro grossly intact: Yes Cognition: Normal Orientation: AAOx4 Speech: Normal - Psychological Associated symptoms: Normal affect, Normal mood - Skin Skin Temperature: Warm Skin Moisture: Dry Skin Color: Normal Course - Re-evaluation Re-evalutation: 04/29/20 13:57 Patient reports that her swelling has decreased some and less painful or swollen on the left side of her face and jaw. There is no fever or chills while in the department. Patient did state that since the CT scan that included contrast has caused her to start itching without any rash at this time. No airway compromise no wheezing. - Vital Signs Vital signs: Temp Pulse Resp BP Pulse Ox 98.0 F 89 18 150/88 H 97 04/29/20 10:14 04/29/20 10:14 04/29/20 10:14 04/29/20 10:14 04/29/20 10:14 04/29/20 13:58 Vital signs stable - Laboratory Result Diagrams: 04/29/20 11:08 04/29/20 11:08 Laboratory results interpreted by me: 04/29/20 04/29/20 04/29/20 10:25 11:08 11:08 WBC 11.5 H ESR 38 H Sodium 134.5 L Creatinine 0.42 L Glucose 217 H POC Glucose 230 H C-Reactive Protein 41.4 H 04/29/20 13:22 WBC ESR Sodium Creatinine Glucose POC Glucose 201 H C-Reactive Protein 04/29/20 13:58 White blood cell count elevated slightly at 11.5 blood sugars 201 - Diagnostic Test Radiology reviewed: Image reviewed, Reports reviewed Radiology results interpreted by me: 04/29/20 13:59 CT of face showed no acute process no evidence for abscess or any significant inflammatory tissue noted. Discharge - Discharge Clinical Impression: Diffuse cellulitis of face, Insulin dependent diabetes mellitus Condition: Stable Disposition: HOME, SELF-CARE Instructions: MRSA Cellulitis ([facility]) Prescriptions: Amoxicillin/Potassium Clav [Augmentin 875-125 Tablet] 1 tab PO BID #20 tab Clindamycin HCl 300 mg PO TID #30 capsule Ibuprofen [Motrin 800 mg Tablet] 800 mg PO Q8H PRN #21 tablet PRN Reason: pain Referrals: BEBO WAKEFIELD MD [Primary Care Provider] - Follow up as needed I personally performed the services described in the documentation, reviewed and edited the documentation which was dictated to the scribe in my presence, and it accurately records my words and actions.
[2020-04-29 14:47] VITALS: BP 160/90
== END 2020-04-29 14:40 | disposition home or self-care (01) ==
LOC: ER 10:11
DX: L03.211 Cellulitis of face (principal); R22.0 Localized swelling, mass and lump, head; R68.84 Jaw pain; E11.9 Type 2 diabetes mellitus without complications; Z79.4 Long term (current) use of insulin
CPT/HCPCS: 99284; 96375; 96365; 96366; 96367; 36415; 87040; 82962; 85025; 85652; 86140; 80053; 82803; 70487; J1885; J2270; J2405; J7030; J3370; S0028; J0692